=== PATIENT | female | born 1990 | race Caucasian/White ===

== ENCOUNTER 2018-01-15 11:49 | Emergency (ER) | payer MEDICAID, SELFPAY ==
[2018-01-15 11:50] VITALS: BP 144/81; PULSE 77; RESP 18; TEMP 36.9; O2SAT 97; BMI 48.5
[2018-01-15 12:14] LABS: Bacteria 0 SEEN /hpf (None Seen); Mucous, Urine 0 SEEN /hpf (<or=2+); Red Blood Cells-Urine 0 SEEN /hpf (0-5)
--- NOTE | 2018-01-15 12:17 | ED.VISSUMM ---
- ER Visit Summary Date of Service: 01/15/18 Chief Complaint: Abdominal pain History of Present Illness: The patient is a 27 F with no primary care physician. She reports that she has epigastric abdominal pain began yesterday at 8 PM shortly after eating a ham sandwich. Reports pain resolved. Came back at 5:00 this morning is much worse. She describes as a cramping, bloated feeling that is 8 out of 10 severity at worst and currently. Is worsened by standing up. Is relieved by laying down in the position. She has had nausea without vomiting. No diarrhea. Last bowel was yesterday. She has had no melena or hematochezia. No dysuria or frequency. Her last menstrual period was approximate 1 month ago. No vaginal bleeding or discharge. Patient reports that she was seen at [facility] approximately 3 weeks ago with a similar episode. States that she was admitted with pancreatitis and was told that she had gallstones. States that she did not have follow-up with the surgeon at this point. Patient denies any specific fatty food intolerance. States that there was mustard on her ham sandwich last night and she thinks this may be the culprit. She avoids spicy foods. Physical Examination: Vitals: Stable. Afebrile. General: Well-nourished and well-developed. Head: Normocephalic atraumatic. Neck: Supple, no lymphadenopathy. No JVD. Nontender. Cardiovascular: Regular rate and rhythm. No murmurs. Respiratory: No respiratory distress. Clear to auscultation bilaterally. Abdominal: Soft, moderate epigastric and right upper quadrant tenderness to palpation, nondistended, normal bowel sounds. No guarding, rebound, or peritoneal signs. Back: Nontender. Extremities: Nontender, no edema. Skin: Normal color, no rash. Neurologic: Alert and oriented ?3. Cranial nerves II through XII are intact. Normal strength and sensation. Psych: Normal affect. Test Results: Lipase is 31,594. Direct bili 0.34. ALT is 90. AST is 132. LFTs are otherwise normal. Chem-7 is normal. CBC shows segmented neutrophils 71 lymphocytes of 19. UA has 10-25 white blood cells with no epithelial cells. test is negative. Right upper quadrant ultrasound shows a normal distended gallbladder with a wall of 2.2 mm. No pericholecystic fluid. No Doll sign. She does have multiple gallstones. Common duct is 6.6 mm. Emergency Department Course and Treatment: Patient is on Subutex. She had an IV placed and was given Zofran and Toradol IV. She was given a GI cocktail p.o. she is resting comfortably. She is given dose of Cipro IV to cover her urine. Treatment Plan: Patient was discussed with Dr. Wolf who is concerned with the size of a common dilated bile duct that she may need an ERCP and asked that she be transferred to a tertiary center. She was discussed with [facility], her hospital of choice. She will be transferred there for further evaluation and treatment. Disposition: Transferred in stable condition. Impression: 1. Gallstone pancreatitis. This note was generated with [employer] dictation software. It may contain incorrect words, spelling, and punctuation that were not noted in review of the chart prior to signing ED Disposition - Plan for ED Patient: Chief Complaint: Abd Pain Referrals: NOT,DEFINED [NON-STAFF] -
[2018-01-15 12:23] LABS: Color, Urine Yellow (Yellow); Glucose, Dipstick Normal (Normal); Ketone-Dipstick Negative (Negative); Leukocyte Esterase-Dipstick 100 /ul (Negative); Nitrite-Dipstick Negative (Negative); Occult Blood-Urine Negative /ul (Negative); Protein-Dipstick Negative (Negative); Urine Bilirubin Dipstick Negative (Negative); Urine Clarity Sl. Cloudy (Clear); Urine Urobilinogen Normal (Normal)
[2018-01-15] MEDS: Ketorolac 30 MG/ML Syringe IV (12:29)
[2018-01-15] MEDS: 0.9% Normal Saline 1,000 ML 1000 ML IV (12:29)
[2018-01-15] MEDS: Ondansetron 4 MG/2 ML Vial IV (12:30)
[2018-01-15 12:42] LABS: Squamous Epithelial Cells - UA 0-5 SEEN /hpf (5-10); White Blood Cells 10-25 SEEN /hpf (0-5)
[2018-01-15 12:55] LABS: Absolute Lymphocyte Count 1.15 X10^3/ul (0.83-4.51); Absolute Neutrophil Count 4.4 X10^3/uL (2.0-7.7); Basophil# 0.01 X10^3/uL; Basophil% 0.2 % (0-1); Eosinophil# 0.18 X10^3/uL; Eosinophils% 2.9 % (0-5); Hematocrit 42.1 % (37-47); Hemoglobin 13.9 g/dl (12.0-15.0); Lymphocyte # 1.15 X10^3/ul (4.0); Lymphocyte % 18.6 % (19-41); Mean Corpuscular Hgb 29.8 pg (27.0-32.0); Mean Corpuscular Volume 90.3 fL (81-99); Mean Platelet Vol. 10.1 fl (6.2-12.0); Monocyte# 0.45 X10^3/uL; Monocyte% 7.3 % (0-10); Neutrophil # 4.38 X10^3/uL (2.7-7.7); Neutrophil % 70.8 % (47-70); POSITIVE COUNT NO; POSITIVE DIFFERENTIAL NO; POSITIVE MORPHOLOGY NO; Platelet Count 198 K/mm3 (150-450); RBC Distribution Width SD 42.1 fl (35.1-43.9); Red Blood Count 4.66 M/mm3 (4.2-5.4); White Blood Count 6.2 K/mm3 (4.4-11.0)
[2018-01-15 13:15] LABS: Pregnancy, Serum, hCG Quali. NEGATIVE Negative (0-9 Nonpreg)
[2018-01-15 13:30] LABS: AST(SGOT) 132 U/L (15-37); Alanine Aminotransfer ALT/SGPT 90 U/L (13-56); Albumin, Serum 3.2 g/dL (3.2-5.0); Alkaline Phosphatase 92 U/L (45-117); Anion Gap 7 (5-15); BUN 11 mg/dL (7-18); BUN/Creat Ratio 12.1 RATIO (10-20); Bilirubin, Direct 0.34 mg/dL (0.00-0.30); Calcium,Total 8.6 mg/dL (8.5-10.1); Chloride 107 mmol/L (98-107); Creatinine, Serum 0.91 mg/dL (0.55-1.02); EST Glomerular Filtration Rate 77 mL/min (>60); Est Glom Filt Rate - Afr Amer 94 mL/min (>60); Estimated Creatinine Clearance 75.46 ml/min; Globulin 3.7 g/dL (2.2-4.2); Glucose 89 mg/dL (74-106); Lipase 31594 U/L (73-393); Protein, Total 6.9 g/dL (6.4-8.2); Sodium Level 144 mmol/L (136-145)
--- NOTE | 2018-01-15 13:45 | US_ITS ---
STUDY: ABDOMINAL ULTRASOUND - RIGHT UPPER QUADRANT REASON FOR VISIT: Female, 27 years old. Abnormal liver enzymes. TECHNIQUE: Ultrasound evaluation of the right upper quadrant was performed with real-time and static mi-scale imaging. TECHNICAL QUALITY: Adequate. COMPARISON: None. FINDINGS: Liver: The liver measures 17 cm. There is increased echogenicity consistent with fatty infiltration. The bile ducts are within normal limits. There is hepatic color flow. The direction of portal flow is hepatopetal. There is a 9 mm x 7 mm x 8 mm slightly echogenic nodule in the right lobe of the liver. This most likely represents a small hemangioma. Gallbladder: Normal distended gallbladder. The gallbladder wall measures 2.2 mm. There is a negative sonographic Doll's sign. There is no pericholecystic fluid. There are multiple echogenic structures within the gallbladder, consistent with multiple gallstones. Common Bile Duct (C.B.D.): The common bile duct is slightly dilated and measures 6.6 mm. Pancreas: Normal size of the head, body of the pancreas. The tail portion is obscured due to overlying bowel gas. There is normal echogenicity of the pancreas. There is no demonstrated pancreatic mass or cyst. Right Kidney: Normal size of the right kidney. The right kidney measures 12 cm x 5.4 cm x 4.5 cm. Normal renal cortex. The right cortex measures 1.0 cm. There is no demonstrated renal mass or cyst. There is no right hydronephrosis. US/Gallbladder IMPRESSION: Multiple gallstones. Mild dilatation of the common bile duct. Findings suggestive of a small hemangioma in the right lobe of the liver. Electronically Signed: Denzel August MD at 15:22 EDT Tel [phone], Service support ,
[2018-01-15 14:23] VITALS: BMI 48.5
[2018-01-15 14:32] VITALS: BP 105/56; PULSE 60; RESP 14; O2SAT 96
[2018-01-15] MEDS: buPROPion 100 MG Tablet PO (16:48)
[2018-01-15] MEDS: Ciprofloxacin 400 MG/200 ML BAG 200 MG IV (16:48)
[2018-01-15] MEDS: Sertraline 100 MG Tablet PO (16:48)
[2018-01-15 17:39] VITALS: PULSE 62; RESP 16
== END 2018-01-15 17:35 | disposition short-term general hospital (02) ==
PROVIDERS: Emergency Provider Emergency Medicine
DX: K85.10 Biliary acute pancreatitis without necrosis or infection (principal); F17.200 Nicotine dependence, unspecified, uncomplicated
CPT/HCPCS: 76705; 80048; 80076; 81001; 83690; 84703; 85025; 96361; 96365; 96374; 96375; 99284; J7030; J7050; J0744; J2405

== ENCOUNTER 2018-02-21 04:13 | Emergency (ER) | payer MEDICAID, SELFPAY ==
[2018-02-21 04:14] VITALS: BP 134/89; PULSE 76; RESP 20; TEMP 36.6; O2SAT 100; BMI 47.3
--- NOTE | 2018-02-21 04:20 | ED.DCSUM_ITS ---
- ER Visit Summary Date of Service: 02/21/18 Chief Complaint: Vaginal and vulvar pain History of Present Illness: The patient is a 27 F who presents for 2 days of vaginal pain. Patient noted vaginal irritation that is now progressed to vulvar irritation. She thought it might be yeast infection and has been using 2 days of the vaginal cream insertion without improvement. She noted white creamy discharge after starting to use these infection medications. She denies any vaginal bleeding. Today when wiping she noted blood on her tissue paper. She denies any dysuria, suprapubic discomfort, abdominal pain, nausea vomiting, fever, frequency, urgency. She is sexually active with a new partner for 1 month and they have been having unprotected sex. Patient is also concerned for . Physical Examination: Vital signs: afebrile, hemodynamically stable, no hypoxia on room air General: well nourished, well developed, in no distress Skin: warm, dry, no rash, no pallor HEENT: normocephalic and atraumatic; PERRL, EOMI, moist mucous membranes Cardiovascular: regular rate and rhythm Respiratory: No increased work of breathing Abdominal: Abdomen is soft, nontender with normoactive bowel sounds, no guarding or rebound, no masses : normal external genitalia without lesions, small fissure noted superior to the urethra along the skin crease with associated tenderness, homogenous white vaginal discharge, cervical erythema, no vaginal lesions, no cervical motion tenderness, no adnexal masses or tenderness MSK: Moves all extremities, no deformities, normal strength Neuro: Awake and alert, oriented ?4. No facial droop, sensation and motor function intact and symmetric Test Results: Abnormal Lab Results 02/21/18 02/21/18 04:22 04:22 Urine Color Yellow Urine Clarity Sl. Cloudy Urine pH 5.0 Ur Specific [place] 1.025 Urine Protein 15 H Urine Glucose (UA) Normal Urine Ketones 5 H Urine Occult Blood 10 H Urine Nitrite Negative Urine Bilirubin 1 H Urine Urobilinogen 1 H Ur Leukocyte Esterase 500 H Urine RBC 0 SEEN Urine WBC 10-25 SEEN Ur Squamous Epith Cells 0 SEEN Urine Bacteria RARE Hyaline Casts 0-5 SEEN Urine Mucus 2+ Urine Trichomonas 0-5 SEEN Urine Test Negative Emergency Department Course and Treatment: Urinalysis was performed, as well as test, GC and chlamydia, and wet prep to evaluate for trichomonas or yeast infection. Patient's urinalysis and wet prep were positive for trichomonas. Patient was started on Flagyl. Patient opted for 1 week of twice daily dosing rather than 1x2 g dose. Patient was going to be treated empirically for GC and chlamydia, however she is allergic to penicillins and Cefaclor, thus we discussed waiting for the results of the pending GC and Chlamydia testing to determine if treatment is necessary. Patient's phone number was updated in the system. Patient was discharged home with a prescription for 1 week of Flagyl 500 mg twice daily, with the first dose given in the emergency department. Treatment Plan: [] Disposition: [] Impression: Trichomonas vaginitis This note was generated with [employer] dictation software. It may contain incorrect words, spelling, and punctuation that were not noted in review of the chart prior to signing ED Disposition - Plan for ED Patient: Disposition: Home or Assisted Living Chief Complaint: General Illness Instructions: ED Vaginitis Trichomonas Prescriptions: Metronidazole [Flagyl] 500 mg PO BID #14 tab Referrals: Care Physician,No Primary [Primary Care Provider] - Additional Instructions: Take the entire week of antibiotics, even if you feel better before they are done. Do not drink alcohol while taking this antibiotic. Do not have sexual intercourse until you have been treated with the antibiotics, and do not have intercourse with any current partners until they have also been treated. If you have any worsening of your condition or any new concerning symptoms, please return immediately to the emergency department for another evaluation.
[2018-02-21 04:38] LABS: Red Blood Cells-Urine 0 SEEN /hpf (0-5); Squamous Epithelial Cells - UA 0 SEEN /hpf (5-10)
[2018-02-21 04:41] LABS: Color, Urine Yellow (Yellow); Glucose, Dipstick Normal (Normal); Internal QC Validated? YES +Cl - CLEAR BKGD; Ketone-Dipstick 5 mg/dl (Negative); Leukocyte Esterase-Dipstick 500 /ul (Negative); Nitrite-Dipstick Negative (Negative); Occult Blood-Urine 10 /ul (Negative); Pregnancy, Urine Negative Negative; Protein-Dipstick 15 mg/dl (Negative); Specific Gravity, Urine 1.025 (1.002-1.030); Urine Clarity Sl. Cloudy (Clear); Urine Urobilinogen 1 mg/dl (Normal)
[2018-02-21 04:57] LABS: Urine Bilirubin Dipstick 1 mg/dL (Negative)
[2018-02-21 04:58] LABS: Bacteria RARE /hpf (None Seen); Mucous, Urine 2+ /hpf (<or=2+)
[2018-02-21 04:59] LABS: Hyaline Cast 0-5 SEEN /lpf (0-5); Trichomonas 0-5 SEEN /hpf (None Seen)
[2018-02-21 05:00] LABS: White Blood Cells 10-25 SEEN /hpf (0-5)
--- NOTE | 2018-02-21 05:28 | ED.DEP ---
ED Disposition - Plan for ED Patient: Disposition: Home or Assisted Living Chief Complaint: General Illness Instructions: ED Vaginitis Trichomonas Prescriptions: Metronidazole [Flagyl] 500 mg PO BID #14 tab Referrals: Care Physician,No Primary [Primary Care Provider] - Additional Instructions: Take the entire week of antibiotics, even if you feel better before they are done. Do not drink alcohol while taking this antibiotic. Do not have sexual intercourse until you have been treated with the antibiotics, and do not have intercourse with any current partners until they have also been treated. If you have any worsening of your condition or any new concerning symptoms, please return immediately to the emergency department for another evaluation.
[2018-02-21] MEDS: metroNIDAZOLE 500 MG Tablet PO (05:40)
[2018-02-21 05:44] VITALS: RESP 14
[2018-02-21 06:32] LABS: Chlamydia Trachomatis by PCR Negative (Negative); Neisserai gonorrhoeae by PCR Negative (Negative); Probe Check PASS; Sample Adequacy Control PASS; Specimen Processing Control PASS
== END 2018-02-21 05:44 | disposition home or self-care (01) ==
PROVIDERS: Emergency Provider Emergency Medicine
DX: A59.01 Trichomonal vulvovaginitis (principal); E66.9 Obesity, unspecified; Z87.19 Personal history of other diseases of the digestive system; Z79.899 Other long term (current) drug therapy
CPT/HCPCS: 81001; 81025; 87086; 87088; 87210; 87491; 87591; 99283

== ENCOUNTER 2018-08-05 06:43 | Emergency (ER) | payer MEDICAID, SELFPAY ==
[2018-08-05 06:45] VITALS: BP 134/93; PULSE 71; RESP 16; TEMP 36.6; O2SAT 98; BMI 38.9
--- NOTE | 2018-08-05 07:38 | ED.DEP ---
ED Disposition - Plan for ED Patient: Instructions: ED Cavity Dental, ED Tooth Pain Prescriptions: Naproxen [Naprosyn] 500 mg PO BID PRN #20 tab Clindamycin HCl [Cleocin] 300 mg PO Q6H #40 cap Referrals: Care Physician,No Primary [Primary Care Provider] - Additional Instructions: see a dentist
[2018-08-05] MEDS: Clindamycin HCl 150 MG Capsule 300 MG PO (07:49)
--- NOTE | 2018-08-05 07:55 | ED.VISSUMM ---
- ER Visit Summary Date of Service: 08/05/18 Chief Complaint: [Dental pain] History of Present Illness: The patient is a 28 F [presents the emergency department complaint of dental pain that started 2-3 days ago. Patient states that she had a broken right upper wisdom tooth that she was supposed to have extracted years ago but then got and it was not bothering her so she kind of neglected it. Patient's had increasing pain over the last 2-3 days. She denies any fevers. She denies any recent trauma to her teeth. Patient states that she is a recovering drug addict and does not want any narcotics. Patient has some insurance issues and has been unable to get a hold of a dentist as of yet.] Physical Examination: [HEENT-PERRLA, EOMI. Cranial nerves II through XII grossly intact. TMs clear. Mucous membranes moist. No adenopathy. Dentition-patient has a broken and carried right upper third molar that is tender to palpation. No abscess noted. No significant pharyngeal erythema noted. There is no facial cellulitis. Cardiovascular-regular rate and rhythm without murmur or ectopy Lungs-clear to auscultation, chest wall stable without crepitus or subcu emphysema Abdomen-normoactive bowel sounds, soft, nontender, no rebound or rigidity, no peritoneal signs. Extremities-intact ?4, normal range of motion, normal pulses, atraumatic] Test Results: None indicated [] Emergency Department Course and Treatment: [Patient was given clindamycin ] Treatment Plan: [Given a prescription for Naprosyn and clindamycin] Disposition: [Discharged home in stable condition. Patient advised to follow-up with a dentist within next 3-5 days.] Impression: [Dental caries Dental pain] This note was generated with [employer] dictation software. It may contain incorrect words, spelling, and punctuation that were not noted in review of the chart prior to signing ED Disposition - Plan for ED Patient: Disposition: Home or Assisted Living Instructions: ED Tooth Pain, ED Cavity Dental Prescriptions: Naproxen [Naprosyn] 500 mg PO BID PRN #20 tab Clindamycin HCl [Cleocin] 300 mg PO Q6H #40 cap Referrals: Care Physician,No Primary [Primary Care Provider] - Additional Instructions: see a dentist
== END 2018-08-05 07:51 | disposition home or self-care (01) ==
LOC: ED 07:46
PROVIDERS: Emergency Provider Emergency Medicine
DX: K02.9 Dental caries, unspecified (principal); K08.89 Other specified disorders of teeth and supporting structures; S02.5XXA Fracture of tooth (traumatic), initial encounter for closed fracture; X58.XXXA Exposure to other specified factors, initial encounter; Y93.9 Activity, unspecified; Y92.9 Unspecified place or not applicable; Z87.898 Personal history of other specified conditions; Z72.0 Tobacco use
CPT/HCPCS: 99282

== ENCOUNTER 2018-08-15 16:50 | Emergency (ER) | payer MEDICAID, SELFPAY ==
[2018-08-15 16:51] VITALS: BP 124/76; PULSE 85; RESP 16; TEMP 36.6; O2SAT 100; BMI 38.9
--- NOTE | 2018-08-15 17:06 | ED.VISSUMM ---
- ER Visit Summary Date of Service: 08/15/18 Chief Complaint: Nausea, fatigue, headache History of Present Illness: The patient is a 28 F who feels extra fatigued for the past week or so. She states she has had intermittent nausea and vomited once yesterday. She felt better this morning but then after lunch felt very ill again. She denies diarrhea. She is a chronic smoker's cough that is unchanged from baseline. Physical Examination: Vital signs are unremarkable. She is afebrile. Pulse ox is 100% on room air. Patient sitting upright in bed no acute distress. Head neck examination unremarkable. Heart is regular rate and rhythm. Lungs sounds clear. Abdomen is soft and nontender. Neuro exam reveals no focal deficits with good strength and sensation on testing. Test Results: CBC significant only for hemoglobin concentrated at 15.1. Chemistry studies normal. Urinalysis normal. test negative. Two-view chest x-ray is unremarkable. Emergency Department Course and Treatment: Patient is given IV fluids, Toradol, and Zofran. On repeat evaluation she does feel improved. I believe she likely has viral syndrome. We talked about the possibility of influenza, but the patient has been ill for greater than 2 days and is not a candidate for Tamiflu at this time. She will be given some Zofran for home if needed. Treatment Plan: [] Disposition: Discharge Impression: Viral syndrome This note was generated with [employer] dictation software. It may contain incorrect words, spelling, and punctuation that were not noted in review of the chart prior to signing ED Disposition - Plan for ED Patient: Referrals: Care Physician,No Primary [Primary Care Provider] -
[2018-08-15 17:23] LABS: Absolute Neutrophil Count 4.1 X10^3/uL (2.0-7.7); Basophil# 0.08 X10^3/uL; Eosinophil# 0.47 X10^3/uL; Eosinophils% 5.7 % (0-5); Hematocrit 42.7 % (37-47); Hemoglobin 15.1 g/dl (12.0-15.0); Lymphocyte % 37.5 % (19-41); Mean Corp Hgb Conc 35.4 g/gl (32-36); Mean Corpuscular Hgb 32.1 pg (27.0-32.0); Mean Corpuscular Volume 90.7 fL (81-99); Mean Platelet Vol. 9.6 fl (6.2-12.0); Monocyte# 0.54 X10^3/uL; Monocyte% 6.5 % (0-10); Neutrophil # 4.06 X10^3/uL (2.7-7.7); Neutrophil % 49.1 % (47-70); Platelet Count 254 K/mm3 (150-450); RBC Distribution Width CV 12.8 % (11.6-14.6); RBC Distribution Width SD 42.1 fl (35.1-43.9); Red Blood Count 4.71 M/mm3 (4.2-5.4); White Blood Count 8.3 K/mm3 (4.4-11.0)
[2018-08-15 17:24] LABS: POSITIVE COUNT NO; POSITIVE DIFFERENTIAL NO; POSITIVE MORPHOLOGY NO
[2018-08-15] MEDS: 0.9% Normal Saline 1,000 ML 1000 ML IV (17:30)
[2018-08-15] MEDS: Ondansetron 4 MG/2 ML Vial IV (17:30)
[2018-08-15] MEDS: Ketorolac 30 MG/ML Syringe IV (17:30)
--- NOTE | 2018-08-15 17:41 | RAD_ITS ---
STUDY: X-RAY CHEST REASON FOR EXAM: Female, 28 years old. Cough TECHNIQUE: PA and lateral views of the chest. COMPARISON: None. FINDINGS: The lungs are clear and expanded. There is no demonstrated pleural abnormality. Normal size heart. Normal mediastinum and sarai. Normal visualized pulmonary arteries. Normal visualized aortic arch and descending thoracic aorta. Normal visualized thoracic spine. Normal visualized ribs, clavicles, and shoulders. There is no demonstrated abnormality of the visualized soft tissue structures of the upper abdomen. RAD/Chest PA and Lateral IMPRESSION: Normal x-ray examination of the chest. Electronically Signed: Britton Mirza MD at 18:07 EST , Service support ,
[2018-08-15 17:47] LABS: Anion Gap 7 (5-15); BUN 13 mg/dL (7-18); BUN/Creat Ratio 12.9 RATIO (10-20); Calcium,Total 8.3 mg/dL (8.5-10.1); Chloride 104 mmol/L (98-107); Creatinine, Serum 1.01 mg/dL (0.55-1.02); EST Glomerular Filtration Rate 68 mL/min (>60); Est Glom Filt Rate - Afr Amer 83 mL/min (>60); Estimated Creatinine Clearance 67.37 ml/min; Glucose 96 mg/dL (74-106); Potassium 3.7 mmol/L (3.5-5.1); Sodium Level 137 mmol/L (136-145)
[2018-08-15 17:48] LABS: Bacteria 0 SEEN /hpf (None Seen); Mucous, Urine 0 SEEN /hpf (<or=2+)
[2018-08-15 17:49] LABS: Color, Urine Yellow (Yellow); Glucose, Dipstick Normal (Normal); Ketone-Dipstick Negative (Negative); Leukocyte Esterase-Dipstick Negative /ul (Negative); Nitrite-Dipstick Negative (Negative); Occult Blood-Urine Negative /ul (Negative); Protein-Dipstick Negative (Negative); Urine Bilirubin Dipstick Negative (Negative); Urine Clarity Clear (Clear); Urine Urobilinogen Normal (Normal)
[2018-08-15 18:19] LABS: Pregnancy, Serum, hCG Quali. NEGATIVE Negative (0-9 Nonpreg)
[2018-08-15 18:22] LABS: Squamous Epithelial Cells - UA 0-5 SEEN /hpf (5-10)
[2018-08-15 18:24] LABS: Red Blood Cells-Urine 0-5 SEEN /hpf (0-5)
[2018-08-15 18:28] LABS: White Blood Cells 0-5 SEEN /hpf (0-5)
--- NOTE | 2018-08-15 18:41 | ED.DEP ---
ED Disposition - Plan for ED Patient: Disposition: Home or Assisted Living Instructions: ED Viral Syndrome Prescriptions: Ondansetron [Zofran Odt] 4 mg PO Q8H PRN PRN #10 tablet PRN Reason: Nausea Referrals: Carl Estevez MD [STAFF PHYSICIAN] - As Needed
[2018-08-15 18:56] VITALS: RESP 16
== END 2018-08-15 18:57 | disposition home or self-care (01) ==
PROVIDERS: Emergency Provider Emergency Medicine
DX: B34.9 Viral infection, unspecified (principal); R11.2 Nausea with vomiting, unspecified; J41.0 Simple chronic bronchitis; M79.10 Myalgia, unspecified site; R53.83 Other fatigue; Z87.898 Personal history of other specified conditions; F17.200 Nicotine dependence, unspecified, uncomplicated
CPT/HCPCS: 71046; 80048; 81001; 84703; 85025; 96361; 96374; 96375; 99283; J7030; J2405

== ENCOUNTER 2019-02-22 23:20 | Outpatient (CLI) | payer MEDICAID, SELFPAY ==
[2019-02-22 23:55] VITALS: BMI 42.9
--- NOTE | 2019-02-23 07:56 | OB.TRI.NOTE ---
History of Present Illness Date of Service: 02/22/19 Was patient seen by the physician?: No Reason For Visit: cramping Date of Service: 02/22/19 Final MORALES: 06/26/19 Gestational age: 22 Weeks and 3 Days Allergies amoxicillin [Amoxicillin] Allergy (Verified 02/23/19 00:00) Hives cefaclor [From Ceclor] Allergy (Verified 02/23/19 00:00) Hives Penicillins Allergy (Verified 02/23/19 00:00) Hives morphine Adverse Reaction (Verified 02/23/19 00:00) Hives narcotics Adverse Reaction (Uncoded 02/23/19 00:00) Other in recovery for addiction NST - FHR Rate Baby A Baseline: 130s NST Reactive:: Appropriate for gestational age Uterine Activity:: no contactions Impression/Plan 28-year-old 2 para 1 at 22+ weeks gestation with cramping-not in labor Patient had lactose which she has avoided in her diet due to GI concerns. This is likely the cause of her abdominal cramping. No signs of labor. DC home.
== END 2019-02-23 00:10 | disposition home or self-care (01) ==
LOC: WPOUT 23:40 → WP 23:41
PROVIDERS: Referring Provider Obstetrics & Gynecology; Visit Provider Obstetrics & Gynecology
DX: O26.892 Other specified pregnancy related conditions, second trimester (principal); R25.2 Cramp and spasm; Z3A.22 22 weeks gestation of pregnancy
CPT/HCPCS: 59025; 59050; 99218; G0378

== ENCOUNTER 2019-06-07 22:21 | Outpatient (CLI) | payer MEDICAID, SELFPAY ==
[2019-06-07 23:06] VITALS: BMI 44.1
--- NOTE | 2019-06-09 12:36 | OB.TRI.NOTE ---
History of Present Illness Date of Service: 06/07/19 Was patient seen by the physician?: No Reason For Visit: R/O LABOR Date of Service: 06/07/19 Gestational age: 37.2 Allergies amoxicillin [Amoxicillin] Allergy (Verified 06/07/19 23:07) Hives cefaclor [From Ceclor] Allergy (Verified 06/07/19 23:07) Hives Penicillins Allergy (Verified 06/07/19 23:07) Hives morphine Adverse Reaction (Verified 06/07/19 23:07) Hives narcotics Adverse Reaction (Uncoded 06/07/19 23:07) Other in recovery for addiction NST - FHR Rate Baby A Baseline: 125 Variability:: Moderate Accelerations:: 15 x 15 Decelerations:: None NST Reactive:: Yes FHR Category:: Category I Uterine Activity:: irregular contractions Impression/Plan 28yo @ 37.2 wks, false labor 1) dc home
== END 2019-06-07 23:15 | disposition home or self-care (01) ==
LOC: WPOUT 22:40 → WP 22:40
PROVIDERS: Referring Provider Obstetrics & Gynecology; Visit Provider Obstetrics & Gynecology
DX: O47.1 False labor at or after 37 completed weeks of gestation (principal); Z3A.37 37 weeks gestation of pregnancy
CPT/HCPCS: 59025; 59050; 99218; G0378

== ENCOUNTER 2019-06-20 07:30 | Inpatient (IN) | payer MEDICAID, SELFPAY ==
[2019-06-20] MEDS: Lactated Ringers 1,000 ML 50 ML IV (08:00)
[2019-06-20] MEDS: Oxytocin 30 units/NS 500 ml 30 UNITS/500 ML IV.SOLN IV (08:20)
[2019-06-20 08:25] LABS: Absolute Lymphocyte Count 2.83 X10^3/uL (0.83-4.51); Absolute Neutrophil Count 5.4 X10^3/uL (2.0-7.7); Basophil# 0.04 X10^3/uL; Basophil% 0.4 % (0-1); Eosinophil# 0.42 X10^3/uL; Eosinophils% 4.5 % (0-5); Hematocrit 33.8 % (37-47); Hemoglobin 11.7 g/dL (12.0-15.0); Lymphocyte # 2.83 X10^3/ul (4.0); Mean Corp Hgb Conc 34.6 g/dL (32-36); Mean Corpuscular Hgb 30.6 pg (27.0-32.0); Mean Corpuscular Volume 88.5 fL (81-99); Mean Platelet Vol. 10.7 fl (6.2-12.0); Monocyte# 0.71 X10^3/uL; Monocyte% 7.5 % (0-10); NRBC Flagged by Analyzer 0 % (0-5); Neutrophil % 57.3 % (47-70); Platelet Count 175 K/mm3 (150-450); RBC Distribution Width CV 12.2 % (11.6-14.6); RBC Distribution Width SD 38.9 fl (35.1-43.9); Red Blood Count 3.82 M/mm3 (4.2-5.4); White Blood Count 9.4 K/mm3 (4.4-11.0)
[2019-06-20] MEDS: Vancomycin IV 1,000 MG/200 ML BAG 200 MG IV ×2 (08:26→19:38)
[2019-06-20 08:46] VITALS: BMI 45.1
[2019-06-20 08:54] LABS: Amphetamine Urine VISTA NEGATIVE (<1000 ng/mL); Barbiturate Urine VISTA NEGATIVE (< 200 ng/mL); Benzodiazepine Urine VISTA NEGATIVE (< 200 ng/mL); Cocaine Urine VISTA NEGATIVE (< 300 ng/mL); Ecstacy Urine VISTA NEGATIVE (< 500 ng/mL); Methadone Urine VISTA NEGATIVE (< 300 ng/mL); PCP Urine VISTA NEGATIVE (< 25 ng/mL); THC Urine VISTA NEGATIVE (< 50 ng/mL); Vista UDS pH Range 5
[2019-06-20] MEDS: 0.9% Normal Saline Single 100 ML IV.SOLN. IY (09:32)
--- NOTE | 2019-06-20 10:11 | HP.PCM_ITS ---
- Problem List (1) 39 weeks gestation of Status: Acute (2) Multiparous Status: Acute (3) complicated by Suboxone maintenance, antepartum Status: Acute (4) Tobacco abuse Status: Acute (5) Obesity affecting Status: Acute (6) History of depression Status: Acute (7) Hx of macrosomia, infant of prior , currently Status: Acute (8) Positive GBS test Status: Acute History Date of Admission: 06/20/19 Final MORALES: 06/26/19 Gestational age: 39 Weeks and 1 Days History of this : This is a 28 year-old, G 2, P 1, at 39 weeks gestational age who presents for an elective IOL. +Irregular ctx's. No vb, lof. Good FM. Medical History: Medical History (Last Updated 06/20/19 @ 10:15 by Alexandra Pennington DO) History of drug abuse F19.11 History of depression Z87.59, Z86.59 Surgical History: Surgical History (Last Updated 06/20/19 @ 10:15 by Alexandra Pennington DO) History of laparoscopic cholecystectomy Z90.49 History of tonsillectomy and adenoidectomy Z98.890 Allergies amoxicillin [Amoxicillin] Allergy (Verified 06/07/19 23:07) Hives cefaclor [From Ceclor] Allergy (Verified 06/07/19 23:07) Hives Penicillins Allergy (Verified 06/07/19 23:07) Hives morphine Adverse Reaction (Verified 06/07/19 23:07) Hives narcotics Adverse Reaction (Uncoded 06/07/19 23:07) Other in recovery for addiction Home Medications: Home Medications Ondansetron [Zofran Odt] 4 mg PO Q8H PRN PRN #10 tablet 08/15/18 Buprenorphine HCl 8 mg SL BID 06/20/19 Pnv No.103/Folic/Om3s/Fish Oil [ Gummies] 2 ea PO DAILY 06/20/19 Smoking Status: Heavy Smoker (>10/day) Substance Use Type: Prescribed Number of Fetus(es): 1 NST - FHR Rate Baby A NST Reactive:: Yes FHR Category:: Category I Uterine Activity:: Occasional ctx's History Past Pregnancies: Past Pregnancies Delivery Date Name GA/ Weeks Outcome Route Wt Sex Labor Length Anesthesia Delivery Location Provider FOB Labs: GBS pos Hgb 11.4 1 hr GTT 86 Sequential screen neg O positive Antibody screen neg Syphilis NR RI Hep B neg HIV NR GC/CT neg UDS neg Expected Infant Delivery Method: Spontaneous Vaginal Review of Systems Gynecological: Reports: - - +Ctx's. No vb, lof. Good FM Physical Exam General: Alert, No apparent distress HEENT: Atraumatic Abdomen: Soft, Non Tender, Gravid Extremities:: No edema Neurological: Neuro grossly intact CASH RECONCILIATION SPECIALIST: Normal external genitalia Estimated gestational size: Appropriate for gestational size Presentation: Cephalic Cervix Dilation (cm): 1.5 Station: -2 Effacement (%): 60 Assessment/Plan All Active Problems (Last Updated 06/20/19 @ 10:15 by Alexandra Pennington DO) 39 weeks gestation of (Acute) Multiparous (Acute) complicated by Suboxone maintenance, antepartum (Acute) Tobacco abuse (Acute) Obesity affecting (Acute) History of depression (Acute) Hx of macrosomia, of prior , currently (Acute) Positive GBS test (Acute) This is a 28 year-old, G 2, P 1001, at 39 weeks gestational age who presents for scheduled elective IOL. - Admit for routine intrapartum care - Pit and farrar induction - Vanc for GBS positive - Epidural for pain control - Pelvis adequate and anticipate vaginal delivery - UDS on admission for h/o drug use on Subutex. Per patient, she was instructed that the Subutex would be ordered as an inpatient and then she will have her own [facility]
--- NOTE | 2019-06-20 16:10 | PCM.PN.BLA ---
Progress Note Cvx 5/60/-2, head well applied. AROM performed in usual fashion for clear fluid. IUPC and FSE placed. Pt tolerated well. Category 1 tracing.
[2019-06-20] MEDS: Lactated Ringers 500 ML 999 ML IV ×2 (16:42→23:21)
[2019-06-20] MEDS: Ondansetron 4 MG/2 ML Vial IV (17:55)
[2019-06-20] MEDS: Lactated Ringers 1,000 ML 200 ML IV (19:38)
[2019-06-20 20:11] LABS: BUP Internal Control LINE = VALID (VALID); Buprenorphine Drug Screen Positive (<10 ng/mL)
[2019-06-21] MEDS: Oxytocin 30 units/NS 500 ml 30 UNITS/500 ML IV.SOLN 334 UNITS IV (00:21)
--- NOTE | 2019-06-21 00:33 | PCM.OPRPT ---
Problem List (1) 39 weeks gestation of Status: Acute (2) Multiparous Status: Acute (3) complicated by Suboxone maintenance, antepartum Status: Acute (4) Tobacco abuse Status: Acute (5) Obesity affecting Status: Acute (6) History of depression Status: Acute (7) Hx of macrosomia, infant of prior , currently Status: Acute (8) Positive GBS test Status: Acute Report of Operation Date of Procedure: 06/21/19 Pre-Operative Diagnosis: 39 week gestation, mulitparous patient, history of drug use, obesity in , elective induction Post-Operative Diagnosis: As above Surgery/Procedure Performed:: Type of Anesthesia:: Epidural Special Medications: None Specimen's removed: Placenta Drains: Hurley Estimated Blood Loss (mL): 300 Description of Procedure: Patient complete and pushing. Head was delivered without force or delay and a loose nuchal cord was noted and reduced. The anterior shoulder followed by the posterior shoulder and body were delivered without force or delay. Viable female was delivered atraumatically and placed on maternal abdomen. Cord was clamped and cut after a 60 sec delay by the father of the baby. Cord gases and cord blood were obtained. Placenta delivered spontaneously and was noted to be normal-appearing and intact. There was a three-vessel cord. Uterus was explored x1 with a small amount of membranes removed. No lacerations were noted. Fundus firm and bleeding hemostatic. Grafts/Implants Used: None - Complications None - Admit VTE Documentation VTE Present on Admission: No Vaginal Delivery Maternal Presentation: Elective Induction Method of Induction: Pitocin, Hurley Bulb Amniotic Membrane Rupture Type: Artificial Amniotic Fluid Description: Clear Surgery/ Procedure Performed: Spontaneous Vaginal Delivery Type of Anesthesia: Epidural Presentation: Vertex Placental Delivery Description: Spontaneous Cord Vessel Description: 3 Vessels Nuchal Cord Compression: Without compression Cord Entanglement: Around neck x 1, loose Infant A gender: Female (1 minute): 8 (5 minute): 9 Episiotomy Description: None Laceration: None Medications given after delivery: IV Pitocin
[2019-06-21] MEDS: Ondansetron 4 MG/2 ML Vial IV (02:19)
[2019-06-21 04:30] VITALS: BP 132/57; PULSE 78; RESP 16; TEMP 37.2
[2019-06-21] MEDS: BUPRENORPHINE HCL 8 MG TAB.SUBL SL ×2 (06:27→18:22)
[2019-06-21 08:00] VITALS: BP 122/76; PULSE 78; RESP 16; TEMP 36.4
[2019-06-21 09:59] LABS: Hepatitis C Antibody Non-Reactive (Nonreactive)
[2019-06-21 11:41] VITALS: BP 116/57; PULSE 78; RESP 16; TEMP 36.1
[2019-06-21 16:00] VITALS: BP 114/65; PULSE 76; RESP 20; TEMP 36.3
[2019-06-21 20:11] VITALS: BP 120/50; PULSE 67; RESP 14; TEMP 36.3
[2019-06-22 00:14] VITALS: BP 105/61; PULSE 70; RESP 16; TEMP 36.4
[2019-06-22] MEDS: Ibuprofen 600 MG Tablet PO ×3 (00:48→17:58)
[2019-06-22 04:33] VITALS: BP 99/57; PULSE 71; RESP 14; TEMP 36.6
[2019-06-22] MEDS: BUPRENORPHINE HCL 8 MG TAB.SUBL SL ×2 (06:17→17:54)
[2019-06-22 08:30] VITALS: BP 112/67; PULSE 60; RESP 16; TEMP 35.9
--- NOTE | 2019-06-22 11:15 | CASEMGMT ---
Social Work Assessment Labor and Delivery Unit Patient address: [address] [place] [id number] Family?s phone: [phone]; [phone] Date of Referral: 06.22.2019 Time of Referral: 829 Referred By: social work identification Date of Intervention: 06.22.2019 Time of Intervention: 1115 Reason for Referral: maternal history of substance use disorder and on Subutex; baby on TUAN monitoring per protocol. History obtained from: medical records and mother of baby (MOB) Kiesha James Household composition: MOB and reported father of baby (FOB) Rolan García are fulltime. MOB?s oldest child has been back in the home since 05.31.2019. FOB has 2 older children who are there -and every other weekend. MOB reports home situation is adequate. Patient's parent/guardian status: MOB and FOB are both ag 30 and have been together for a year. MOB denies any form of abuse in relationship with FOB. baby is the first child for MOB and FOB together. MOB's minor children: [place] baby, Marcie García, born on 06.21.2019. Maya Reardon, age 4 in current custody of [facility] Children services. Child living back with MOB since 05.31.2019 on an extended stay, with reported plan for reunification and transfer of custody back to [facility] on 07.29.2019. FOB?s older children are Isaac age 8 and Burke age 6. Medical History: MOB is G2, P1 to 2 after delivering Marcie. MOB with are starting early but there was a gap in care from 22 to 31 weeks gestation. Baby born term and weighed 7 pounds 5 ounces with Apgars 8 and 9. Educational Status: MOB has her GED. Reports to be able to read, write, and understand what is read. Financial Status: MOB works at [employer] and FOB works at [employer] on third shift. Supplies: MOB reports to have needed supplies including a pack-n-play for sleeping, car seat, clothing, diapers, wipes, breast pump. Childcare/Caregiver(s): MOB and FOB. MOB reports children services just got MOB signed up for day care assistance through [facility]. Transportation: No reported issues. Programs/Agencies Involved: MOB has Medicaid through [facility]. Plans to apply for WIC. Active with [facility] in [place] for aftercare programming and Subutex treatment, meeting weekly at this agency. MOB is active with Veronica Rivera at [facility] for counseling. Recently in the [facility] but reports IGNACIO quit this as IGNACIO had too many things going with other treatment and counseling appointments. Children Services/Legal Issues: Denies any legal issues. Reports history of children services after Maya was born due to substance exposed infant. MOB reports the case was short, just checking to make sure that IGNACIO had everything for the baby. MOB reports last year ?Failed one drug test? and this prompted children services to remove Maya from IGNACIO?s custody. Current family independence case manager is Donaldo Herrmann. Behavioral Health Issues: Mental Health History: IGNACIO has history of depression and anxiety, diagnosed as a teen. History of depression, and history of treatment with Zoloft but no current medication treatment for mood or mental health. MOB denies any history of suicidal thoughts, plans, or attempts. Denies any history of thoughts to harm others. Substance Use History: IGNACIO with history of using drugs off and on since the age of 19. IGNACIO reports was using opiates during with Maya 4 years ago, and got onto Subutex during that . MOB reports relapsing 2 times since Maya was born, with the first being a month after Maya?s as IGNACIO went off Subutex and then the next being in 2018 when IGNACIO was dealing with stress from her ex. IGNACIO states has been sober this time since 05.14.2018. IGNACIO reports past drugs of choice including narcotic pain pills, heroin, and cocaine. No history of IV use. Denies history of issues with alcohol or marijuana. No reports of meth history. Smoke tobacco daily. On Subutex during this , 8 mg twice a day as per Lana Zuñiga at [facility]. Family History: chart indicates IGNACIO?s father with history of alcohol use issues ( since 2009) and then IGNACIO?s brother is an intermittent user of substances. Drug Screens: maternal drug screen negative prenatally on 10.30.2018 and then at delivery 06.20.2019. 06.20.2019 screen Positive only for Subutex. Baby?s urine positive for Subutex only. Meconium is pending. TUAN scoring has been the highest at a three so far. Family/Social Stressors: IGNACIO is in recovery from illicit drug use. Unexpected but accepting of this and intends to keep and parent the baby. IGNACIO lost custody of her oldest daughter a year or so ago due to drug use and has been working to reunify with her daughter. The older daughter was just placed back into the home full-time on 05.31.2019, so a bit of a stress now adjusting to parenting not one but two small children in this period. MOB reports that FOB?s family did not fully understand MOB?s continued use of Subutex during the , so this was at times challenging. Support Systems: MOB reports FOB is MOB?s strongest and main support. FOB?s family is a support, but FOB?s parents were the ones taking care of Maya for the last 9 months or so. MOB reports while the family is supportive there is tension at times due to different parenting styles. Depression/Shaken Baby/Safe Sleeping: Information given on said topics. ASSESSMENT: Met with MOB in room, introducing to self and role. Also educated that should baby go to the [facility] then this film writer will follow family while on the SCN. During social work visit the MOB?s [id number] was in the room for part of conversation and then FOB?s father and another male came to visit. MOB stated it is okay to talk with visitors present and then proceeded to talk freely and spontaneously about sensitive matters in the prescence of visitors. When visitors left, this film writer commented on how open MOB seems to be with family. MOB reports close family is aware of MOB?s history and struggles, and that feels okay talking openly. MOB reports if the visitor was a distant relative or friend then would have asked the visitors to leave before talking to this film writer. MOB held good eye contact, relaxed, normal eye contact. MOB nondefensive and appearing matter of fact about substance use history. MOB reports to have needed supplies for the baby, and to be working with children services of [facility] for reunification with older daughter. Talked with MOB about need to call children services and alert to of Marcie, in part due to intrauterine substance exposure to subutex and also due to active case with children services. MOB reports to be aware of this as children services worker reviewed this with MOB prior to delivery. Supportive listening and encouragement given to MOB this date. MOB accepted resources list for [facility] and a mood and anxiety packet. MOB declined referrals to [facility] or [facility]. Safe Plan of Care for infant related to substance use: Continue with medications assisted treatment through [facility] and abstain from any illicit substance use. PLAN: Baby to remain in hospital for 5-7 days for TUAN monitoring. Anticipate MOB and baby to home with [facility] following closely. MOB aware that can ask to talk to social work if any other needs arise during course of baby?s extended stay. Plan to call [facility]. -ALMA English, MARY
--- NOTE | 2019-06-22 11:30 | CASEMGMT ---
Social Work Labor and Delivery Summary: Called [facility] ([facility]) and spoke with Tangela Bruno, territory supervisor. Reported baby?s , family?s current involvement with [facility] for older children, baby?s substance exposure. Let Tangela know that baby?s TUAN scores have been low so far. No reported or observed concerns with mother/child interactions or bonding. Tangela will automobile and property underwriter this write this report up as an Information and Referral, and make sure the current worker for the family is aware of report today. Should any concerns arise during the hospital stay then these concerns could be called in and reported as indicated. Plan: MOB and baby to home when ready for discharge. [facility] will continue to follow in the community. Baby will remain in hospital for TUAN monitoring 5-7 days. MOB has been given community resources lists and depression and anxiety information for home going. No other services requested or indicated at this time, however should concerns arise then nursing or medical staff can reconsult social work as indicated. -JAN English, TRIGONOMETRY TUTOR
--- NOTE | 2019-06-22 13:29 | PCM.PN.OB ---
Patient Problems: Active and Suspected Problems (Last Updated 06/20/19 @ 10:15 by Alexandra Pennington DO) 39 weeks gestation of (Acute) Multiparous (Acute) complicated by Suboxone maintenance, antepartum (Acute) Tobacco abuse (Acute) Obesity affecting (Acute) History of depression (Acute) Hx of macrosomia, of prior , currently (Acute) Positive GBS test (Acute) Subjective: Denies complaints - Physical Exam Vitals/I&O's: Vital Signs Temp Pulse Resp BP 96.7 F L 60 16 112/67 06/22/19 08:30 06/22/19 08:30 06/22/19 08:30 06/22/19 08:30 Oxygen Delivery Method Room Air Weight: 255 lb 1.197 oz Body Mass Index (BMI) 45.1 Intake and Output for Last 24 Hours 06/20/19 06/21/19 06/22/19 23:59 23:59 23:59 Intake Total 6378.10 / 6378.10 984.17 / 984.17 Output Total 2150 / 2150 500 / 500 Balance 4228.10 / 4228.10 484.17 / 484.17 General: Alert, Oriented x3 Abdomen: Soft, Non Tender, Non-Distended - ff mid & below umb Extremities: No Calf Tenderness Current Medications Acetaminophen (Tylenol) 1,000 mg PO Q8H PRN PRN PRN Reason: Pain Score 1-3/10 Bisacodyl (Dulcolax) 10 mg RECTAL UD PRN PRN Reason: If no BM Buprenorphine HCl (Buprenorphine Hcl) 8 mg SL BID ARUN Last Admin: 06/22/19 06:17 Dose: 8 mg Documented by: Dibucaine (Dibucaine) 1 applic TOPICAL TID PRN PRN; Protocol PRN Reason: Discomfort Hydrocortisone (Hytone) 1 applic TOPICAL TID PRN PRN; Protocol PRN Reason: Discomfort Ibuprofen (Motrin) 600 mg PO Q6H PRN PRN PRN Reason: Pain Score 1-3/10 Last Admin: 06/22/19 08:40 Dose: 600 mg Documented by: Methylergonovine Maleate (Methergine) 0.2 mg IM X1 PRN PRN Reason: Excess bleeding/uterine atony Ondansetron HCl (Zofran) 4 mg IV Q4H PRN PRN PRN Reason: Nausea Last Admin: 06/21/19 02:19 Dose: 4 mg Documented by: Senna/Docusate Sodium (Senokot-S, Lashawn-Colace) 1 - 2 tablet PO DAILY PRN PRN PRN Reason: Constipation Simethicone (Mylicon) 80 mg PO PCHS PRN PRN Reason: Indigestion/Stomach pain Sodium Chloride () 5 - 15 ml IV UD PRN PRN Reason: SALINE FLUSH Medical Necessity - Tobacco Use Smoking Status: Heavy Smoker (>10/day) Assessment/Plan All Active Problems (Last Updated 06/20/19 @ 10:15 by Alexandra Pennington DO) 39 weeks gestation of (Acute) Multiparous (Acute) complicated by Suboxone maintenance, antepartum (Acute) Tobacco abuse (Acute) Obesity affecting (Acute) History of depression (Acute) Hx of macrosomia, infant of prior , currently (Acute) Positive GBS test (Acute) PPD#1 Routine care Continue subutex
[2019-06-22 16:00] VITALS: BP 122/75; PULSE 77; RESP 18; TEMP 36
[2019-06-22 20:52] VITALS: BP 136/68; PULSE 71; RESP 16; TEMP 36.6
[2019-06-23 02:00] VITALS: BP 106/49; PULSE 61; RESP 16; TEMP 36.6
--- NOTE | 2019-06-23 03:13 | NURSING ---
patient called this nurse to room due to patient passing large clot. The clot was slightly larger than egg sized. This nurse checked patients fundus which was firm at umbilicus. Patient was instructed to notify nurse of any additional clots or increase in bleeding. '
[2019-06-23] MEDS: Ibuprofen 600 MG Tablet PO (04:30)
[2019-06-23] MEDS: BUPRENORPHINE HCL 8 MG TAB.SUBL SL ×2 (05:57→18:19)
[2019-06-23 08:00] VITALS: BP 108/73; PULSE 72; RESP 16; TEMP 36.2
--- NOTE | 2019-06-23 11:30 | PCM.PN.OB ---
Patient Problems: Active and Suspected Problems (Last Updated 06/20/19 @ 10:15 by Alexandra Pennington DO) 39 weeks gestation of (Acute) Multiparous (Acute) complicated by Suboxone maintenance, antepartum (Acute) Tobacco abuse (Acute) Obesity affecting (Acute) History of depression (Acute) Hx of macrosomia, of prior , currently (Acute) Positive GBS test (Acute) Subjective: No complaints other than a little itching on her back - Physical Exam Vitals/I&O's: Vital Signs Temp Pulse Resp BP 97.9 F 61 16 106/49 L 06/23/19 02:00 06/23/19 02:00 06/23/19 02:00 06/23/19 02:00 Oxygen Delivery Method Room Air Weight: 255 lb 1.197 oz Body Mass Index (BMI) 45.1 Intake and Output for Last 24 Hours 06/21/19 06/22/19 06/23/19 23:59 23:59 23:59 Intake Total 984.17 / 984.17 Output Total 500 / 500 Balance 484.17 / 484.17 General: Alert, Oriented x3 Abdomen: Soft, Non Tender, Non-Distended - ff mid & below umb Extremities: No Calf Tenderness Current Medications Acetaminophen (Tylenol) 1,000 mg PO Q8H PRN PRN PRN Reason: Pain Score 1-3/10 Bisacodyl (Dulcolax) 10 mg RECTAL UD PRN PRN Reason: If no BM Buprenorphine HCl (Buprenorphine Hcl) 8 mg SL BID@0600,1800 ARUN Last Admin: 06/23/19 05:57 Dose: 8 mg Documented by: Dibucaine (Dibucaine) 1 applic TOPICAL TID PRN PRN; Protocol PRN Reason: Discomfort Hydrocortisone (Hytone) 1 applic TOPICAL TID PRN PRN; Protocol PRN Reason: Discomfort Ibuprofen (Motrin) 600 mg PO Q6H PRN PRN PRN Reason: Pain Score 1-3/10 Last Admin: 06/23/19 04:30 Dose: 600 mg Documented by: Methylergonovine Maleate (Methergine) 0.2 mg IM X1 PRN PRN Reason: Excess bleeding/uterine atony Ondansetron HCl (Zofran) 4 mg IV Q4H PRN PRN PRN Reason: Nausea Last Admin: 06/21/19 02:19 Dose: 4 mg Documented by: Senna/Docusate Sodium (Senokot-S, Lashawn-Colace) 1 - 2 tablet PO DAILY PRN PRN PRN Reason: Constipation Simethicone (Mylicon) 80 mg PO PCHS PRN PRN Reason: Indigestion/Stomach pain Sodium Chloride () 5 - 15 ml IV UD PRN PRN Reason: SALINE FLUSH Medical Necessity - Tobacco Use Smoking Status: Heavy Smoker (>10/day) Assessment/Plan All Active Problems (Last Updated 06/20/19 @ 10:15 by Alexandra Pennington DO) 39 weeks gestation of (Acute) Multiparous (Acute) complicated by Suboxone maintenance, antepartum (Acute) Tobacco abuse (Acute) Obesity affecting (Acute) History of depression (Acute) Hx of macrosomia, infant of prior , currently (Acute) Positive GBS test (Acute) PPD#2 D/c to hotel Back itching -no rash, hydrocortisone cream PRN
--- NOTE | 2019-06-23 11:32 | DCINST_ITS ---
Discharge Diet: No Restrictions Discharge Activity: May Drive, May Shower May resume sexual activity in: 6 weeks Weight Bearing Status: Weight bearing as tolerated Additional Instructions: If you experience any of the following, contact your healthcare provider. * Bleeding that soaks a pad every hour for 2 hours * Fever 100.4 or higher * Unrelieved incision or abdominal pain * Swelling, redness, discharge or bleeding from your incision or episiotomy site * Your incision begins to separate * Problems urinating (including inability to urinate or burning while urinating). * Visual changes * Severe headache * Flu-like symptoms * Pain or redness in one of both of your breasts * Pain, warmth, tenderness or swelling in your legs, especially the calf area * Frequent nausea and vomiting * Symptoms of depression or anxiety If you experience any of the following, call 911 or go to the nearest Emergency Room. * Chest pain * Problems breathing * Seizure activity * Partial or complete paralysis of a body part, slurred speech, weakness or drooping of the face, or a sudden inability to walk or hold your balance Allergies/Adverse Reactions: Allergies amoxicillin [Amoxicillin] Allergy (Verified 06/07/19 23:07) Hives cefaclor [From Ceclor] Allergy (Verified 06/07/19 23:07) Hives Penicillins Allergy (Verified 06/07/19 23:07) Hives morphine Adverse Reaction (Verified 06/07/19 23:07) Hives narcotics Adverse Reaction (Uncoded 06/07/19 23:07) Other in recovery for addiction Medications to take at Discharge Ondansetron [Zofran Odt] 4 mg PO Q8H PRN PRN #10 tablet 08/15/18 Buprenorphine HCl 8 mg SL BID 06/20/19 Pnv No.103/Folic/Om3s/Fish Oil [ Gummies] 2 ea PO DAILY 06/20/19 Acetaminophen [Tylenol] 1,000 mg PO Q8H PRN PRN tablet 06/23/19 Buprenorphine HCl 8 mg SL BID@0600,1800 tab.subl 06/23/19 Ibuprofen [Motrin] 600 mg PO Q6H PRN PRN tablet 06/23/19 Primary Care Physician: Care Physician,No Primary [Primary Care Provider] - Test Results: Test results from this visit will be discussed in further detail at your follow- up appointment, if applicable.
[2019-06-23] MEDS: Acetaminophen 500 MG Tablet 1000 MG PO (12:31)
[2019-06-23 16:00] VITALS: BP 122/73; PULSE 72; RESP 20; TEMP 36.2
== END 2019-06-23 18:20 | disposition home or self-care (01) | DRG 560 ==
PROVIDERS: Admitting Provider Obstetrics & Gynecology; Referring Provider Obstetrics & Gynecology; Visit Provider Obstetrics & Gynecology
DX: O69.81X0 Labor and delivery complicated by cord around neck, without compression, not applicable or unspecified (principal); O99.824 Streptococcus B carrier state complicating childbirth; O99.214 Obesity complicating childbirth; E66.9 Obesity, unspecified; O99.334 Smoking (tobacco) complicating childbirth; F17.200 Nicotine dependence, unspecified, uncomplicated; Z3A.39 39 weeks gestation of pregnancy; Z37.0 Single live birth; Z87.59 Personal history of other complications of pregnancy, childbirth and the puerperium; Z86.59 Personal history of other mental and behavioral disorders
CPT/HCPCS: 59025; 59050; 80307; 85025; 86803; 86850; 86900; 86901; 99218; J7040; J7120; G0378; J2405; J3490

== ENCOUNTER 2021-01-06 19:52 | Emergency (ER) | payer MEDICAID, SELFPAY ==
[2021-01-06 19:54] VITALS: BP 145/93; PULSE 76; RESP 16; TEMP 36.9; O2SAT 100; BMI 52.0
[2021-01-06 19:57] VITALS: BP 145/93; PULSE 76; RESP 16; TEMP 36.9; O2SAT 100
--- NOTE | 2021-01-06 20:05 | EKG12_ITS ---
Test Reason : SOB Blood Pressure : / mmHG Vent. Rate : 070 BPM Atrial Rate : 070 BPM P-R Int : 130 ms QRS Dur : 090 ms QT Int : 408 ms P-R-T Axes : 058 079 024 degrees QTc Int : 440 ms Normal sinus rhythm Normal ECG Confirmed by ALKA JONES, LEYDI ([id number]), web content editor KEARA GONSALES ([id number]) on 01/10/2021 9:13:16 AM Referred By: Confirmed By:LEYDI RUCKER MD
--- NOTE | 2021-01-06 20:18 | EDS_ITS ---
HPI History of Present Illness Chief Complaint: Shortness of Breath Informant: patient Narrative Narrative: 30-year-old female states that on she woke with sore throat headache body aches and nasal congestion. Now she states her lungs hurt. She denies any change in cough but does note that she is occasionally bringing up some small sputum. She has a chronic cough related to tobacco use. She denies any fevers. She notes pain in the left ear. No vomiting or diarrhea. No rashes. PFSH PFSH Medical History History of drug abuse History of depression Home Medications PNV 899-[id number]-[id number]-3-fish oil 2 ea PO DAILY 06/20/19 [History Last Taken 06/18/19 21:00 2 gummies] buprenorphine HCl 16 mg SL DAILY 06/20/19 [History Last Taken 06/20/19 07:15 8 mg] acetaminophen 1,000 mg PO Q8H PRN PRN tab 06/23/19 [Rx Last Taken Unknown] Allergy/AdvReac Type Severity Reaction Status Date / Time amoxicillin [Amoxicillin] Allergy Hives Verified 01/06/21 19:54 cefaclor [From Ceclor] Allergy Hives Verified 01/06/21 19:54 Penicillins Allergy Hives Verified 01/06/21 19:54 morphine AdvReac Hives Verified 01/06/21 19:54 narcotics AdvReac Other Uncoded 01/06/21 19:54 Surgical History History of laparoscopic cholecystectomy History of tonsillectomy and adenoidectomy Social History (Updated 01/06/21 @ 20:[address] Chace Givens DO) Smoking Status: Heavy Smoker (>10/day) substance use type: former substance user ROS ROS ED Constitutional Constitutional ED: Denies chills or weight loss Eyes Eyes: Denies change in vision or diplopia ENT ENT ED: Reports ear pain, rhinorrhea and sore throat Cardiovascular Cardiovascular: Reports chest pain; Denies orthopnea, palpitations or racing heartbeat Respiratory/Chest Respiratory/Chest: Reports cough and sputum; Denies dyspnea or orthopnea Gastrointestinal Gastrointestinal: Denies abdominal pain, diarrhea, nausea or vomiting Genitourinary Genitourinary ED: Denies dysuria, hematuria or urinary frequency Musculoskeletal Musculoskeletal: Reports myalgias; Denies arthralgias Integumentary Denies abscess or rash Neurologic Neurologic: Reports headache(s); Denies weakness Psychiatric Psychiatric: Denies anxiety, depression, suicidal ideation or suicidal thoughts Endocrine Endocrinology: Denies polydipsia, polyphagia or polyuria Allergic/Immunologic Allergic/Immunologic ED: Denies mouth swelling, tongue swelling or urticaria EXAM Physical Exam Const Vital Signs: 01/06/21 19:54 01/06/21 19:57 01/06/21 20:57 Temperature 98.5 F 98.5 F 98.2 F Temperature Source Temporal Temporal Temporal Pulse Rate 76 76 74 Respiratory Rate 16 16 16 Respiratory Effort Non-Labored Respiratory Depth Normal Respiratory Pattern Normal Blood Pressure 145/93 H 145/93 H 139/90 H Blood Pressure Mean 110 110 106 Pulse Ox 100 100 100 Oxygen Delivery Method Room Air Room Air Nasal Cannula 01/06/21 21:56 01/06/21 22:00 Temperature 98.0 F 98.0 F Temperature Source Temporal Temporal Pulse Rate 68 68 Respiratory Rate 16 16 Respiratory Effort Respiratory Depth Respiratory Pattern Blood Pressure 141/88 H 141/88 H Blood Pressure Mean 105 105 Pulse Ox 99 99 Oxygen Delivery Method Room Air Room Air Positive well nourished, well developed and obese General Appearance ED: well developed Nutritional Appearance: obese HEENT Reports normocephalic, head/scalp atraumatic and moist mucous membranes HEENT Narrative: Nasal congestion Eyes PERRL and EOMs intact bilaterally Neck no lymphadenopathy, supple and no JVD Resp normal respiratory effort and clear to auscultation bilaterally Cardio regular rate, regular rhythm and no murmurs GI normal to inspection, nondistended, normoactive bowel sounds and non-tender Palpation: soft Back/Spine no CVA tenderness and normal ROM Extremity normal to inspection General Extremety ED: Negative for edema General Extremity: Negative for edema Neuro oriented x3 and CN's II-XII intact bilaterally Sensorium / Orientation: alert Motor Exam: strength 5/5 throughout Psych mental status grossly normal Mood & Affect: Negative for depressed or tearful Skin no rashes or lesions noted and no wounds MDM MDM MDM Narrative Medical decision making narrative: CBC is normal. D-dimer is negative. BMP is normal. Urinalysis is negative. My interpretation of the chest x-ray is no acute process. And her Covid swab is negative. At this point I think the patient most likely has a viral syndrome in her chest discomfort may be related to pleurisy. We will give her a dose of Kenalog and have her take anti- inflammatories at home return if worsening or concerns Lab Data Attestation: I reviewed the patient's lab results. Labs: Laboratory Results - last 24 hr 01/06/21 01/06/21 01/06/21 20:35 20:35 20:35 WBC 6.1 RBC 4.80 Hgb 14.5 Hct 43.0 MCV 89.6 MCH 30.2 MCHC 33.7 RDW Std Deviation 41.1 RDW Coeff of Carole 12.5 Plt Count 229 MPV 10.2 Immature Gran % (Auto) 0.200 Neut % (Auto) 46.4 L Lymph % (Auto) 38.7 Humphreys % (Auto) 8.0 Eos % (Auto) 5.9 H Baso % (Auto) 0.8 Absolute Neuts (auto) 2.8 Absolute Lymphs (auto) 2.37 Nucleated RBC % 0 D-Dimer Quant (PE/DVT) <= 0.27 Sodium 138 Potassium 4.4 Chloride 103 Carbon Dioxide 30.0 Anion Gap 5 BUN 13 Creatinine 0.80 Estim Creat Clear Calc 83.51 Est GFR (MDRD) Af Amer 106 Est GFR (MDRD) Non-Af 88 BUN/Creatinine Ratio 16.2 Glucose 87 Calcium 8.6 Urine Color Urine Clarity Urine pH Ur Specific [place] Urine Protein Urine Glucose (UA) Urine Ketones Urine Occult Blood Urine Nitrite Urine Bilirubin Urine Urobilinogen Ur Leukocyte Esterase Urine RBC Urine WBC Ur Squamous Epith Cells Urine Bacteria Urine Mucus 01/06/21 20:35 WBC RBC Hgb Hct MCV MCH MCHC RDW Std Deviation RDW Coeff of Carole Plt Count MPV Immature Gran % (Auto) Neut % (Auto) Lymph % (Auto) Humphreys % (Auto) Eos % (Auto) Baso % (Auto) Absolute Neuts (auto) Absolute Lymphs (auto) Nucleated RBC % D-Dimer Quant (PE/DVT) Sodium Potassium Chloride Carbon Dioxide Anion Gap BUN Creatinine Estim Creat Clear Calc Est GFR (MDRD) Af Amer Est GFR (MDRD) Non-Af BUN/Creatinine Ratio Glucose Calcium Urine Color Yellow Urine Clarity Sl. Cloudy Urine pH 6.0 Ur Specific [place] 1.020 Urine Protein Negative Urine Glucose (UA) Normal Urine Ketones Negative Urine Occult Blood 10 H Urine Nitrite Negative Urine Bilirubin Negative Urine Urobilinogen Normal Ur Leukocyte Esterase Negative Urine RBC 0-5 SEEN Urine WBC 0 SEEN Ur Squamous Epith Cells 0-5 SEEN Urine Bacteria 0 SEEN Urine Mucus 0 SEEN Radiography Diagnostic Testing: Radiology Impression Chest X-Ray 01/06/21 20:33 IMPRESSION: Normal x-ray examination of the chest. Electronically Signed: Suleiman Welch MD at 21:52 EDT , Service support , EKG Initial EKG: Attestation: I personally reviewed and interpreted this EKG as follows: Comments: EKG demonstrates a normal sinus rhythm at a rate of 70 bpm. No concerning features of ACS or ectopy noted Discharge Plan Triage Chief Complaint: Shortness of Breath ED Provider: Chace Givens Dx/Rx/DC Orders Clinical Impression: Viral syndrome, Pleurisy Instructions: ED Pleurisy, ED Viral Syndrome (Adult) Prescriptions: No Action buprenorphine HCl 8 MG tablet, sublingual 16 mg SL DAILY RF: 0 PNV 461-xvgol-kmrve-3-fish oil 1 EACH tablet,chewable 2 ea PO DAILY RF: 0 acetaminophen 500 MG tablet 1,000 mg PO Q8H PRN PRN (Reason: Pain Score 1-3/10) RF: 0 Primary Care Provider: Care Physician,No Primary Referrals: Stephy Carter MD [STAFF PHYSICIAN] - As Needed (For primary care) Care Physician,No Primary [Primary Care Provider] - Disposition Disposition: Home, Self Care
[2021-01-06] MEDS: Ketorolac 30 MG/ML Syringe IV (20:27)
--- NOTE | 2021-01-06 20:33 | RAD_ITS ---
STUDY: X-RAY CHEST REASON FOR EXAM: Female, 30 years old. chest pain TECHNIQUE: Single AP portable view of the chest. COMPARISON: August 15, 2018 FINDINGS: The lungs are clear and expanded. There is no demonstrated pleural abnormality. Normal size heart. Normal mediastinum and sarai. Normal visualized pulmonary arteries. Normal visualized aortic arch and descending thoracic aorta. Normal visualized thoracic spine. Normal visualized ribs, clavicles, and shoulders. There is no demonstrated abnormality of the visualized soft tissue structures of the upper abdomen. RAD/Chest 1 View (Portable) IMPRESSION: Normal x-ray examination of the chest. Electronically Signed: Suleiman Welch MD at 21:52 EDT , Service support ,
[2021-01-06 20:46] LABS: Bacteria 0 SEEN /hpf (None Seen); Mucous, Urine 0 SEEN /hpf (<or=2+); White Blood Cells 0 SEEN /hpf (0-5)
[2021-01-06 20:47] LABS: Color, Urine Yellow (Yellow); Glucose, Dipstick Normal (Normal); Ketone-Dipstick Negative (Negative); Leukocyte Esterase-Dipstick Negative /ul (Negative); Nitrite-Dipstick Negative (Negative); Occult Blood-Urine 10 /ul (Negative); Protein-Dipstick Negative (Negative); Urine Bilirubin Dipstick Negative (Negative); Urine Clarity Sl. Cloudy (Clear); Urine Urobilinogen Normal (Normal)
[2021-01-06 20:48] LABS: Absolute Lymphocyte Count 2.37 X10^3/uL (0.83-4.51); Absolute Neutrophil Count 2.8 X10^3/uL (2.0-7.7); Basophil# 0.05 X10^3/uL; Basophil% 0.8 % (0-1); Eosinophil# 0.36 X10^3/uL; Eosinophils% 5.9 % (0-5); Hemoglobin 14.5 g/dL (12.0-15.0); Lymphocyte # 2.37 X10^3/ul (0.83-4.51); Lymphocyte % 38.7 % (19-41); Mean Corp Hgb Conc 33.7 g/dL (32-36); Mean Corpuscular Hgb 30.2 pg (27.0-32.0); Mean Corpuscular Volume 89.6 fL (81-99); Mean Platelet Vol. 10.2 fl (6.2-12.0); Monocyte# 0.49 X10^3/uL; NRBC Flagged by Analyzer 0 % (0-5); Neutrophil # 2.84 X10^3/uL (2.7-7.7); Neutrophil % 46.4 % (47-70); Platelet Count 229 K/mm3 (150-450); RBC Distribution Width CV 12.5 % (11.6-14.6); RBC Distribution Width SD 41.1 fl (35.1-43.9); White Blood Count 6.1 K/mm3 (4.4-11.0)
[2021-01-06 20:57] VITALS: BP 139/90; PULSE 74; RESP 16; TEMP 36.8; O2SAT 100; O2SAT 99
[2021-01-06 21:10] LABS: Anion Gap 5 (5-15); BUN 13 mg/dL (7-18); BUN/Creat Ratio 16.2 RATIO (10-20); Calcium,Total 8.6 mg/dL (8.5-10.1); Chloride 103 mmol/L (98-107); EST Glomerular Filtration Rate 88 mL/min (>60); Est Glom Filt Rate - Afr Amer 106 mL/min (>60); Estimated Creatinine Clearance 83.51 ml/min; Glucose 87 mg/dL (74-106); Potassium 4.4 mmol/L (3.5-5.1); Sodium Level 138 mmol/L (136-145)
[2021-01-06 21:14] LABS: Red Blood Cells-Urine 0-5 SEEN /hpf (0-5); Squamous Epithelial Cells - UA 0-5 SEEN /hpf (5-10)
[2021-01-06 21:27] LABS: D-Dimer Quantitative (DVT/PE) <= 0.27 FEU/ug/m (0.27-0.49)
[2021-01-06 21:56] VITALS: BP 141/88; PULSE 68; RESP 16; TEMP 36.7; O2SAT 99
[2021-01-06 22:00] VITALS: BP 141/88; PULSE 68; RESP 16; TEMP 36.7; O2SAT 99
[2021-01-06] MEDS: Triamcinolone Acetonide 40 MG/ML Vial IM (22:30)
== END 2021-01-06 22:51 | disposition home or self-care (01) ==
PROVIDERS: Emergency Provider Emergency Medicine
DX: B34.9 Viral infection, unspecified (principal); R09.1 Pleurisy; J41.0 Simple chronic bronchitis; J02.9 Acute pharyngitis, unspecified; R51.9 Headache, unspecified; M79.10 Myalgia, unspecified site; R09.81 Nasal congestion; E66.9 Obesity, unspecified; Z68.43 Body mass index [BMI] 50.0-59.9, adult; F17.200 Nicotine dependence, unspecified, uncomplicated
CPT/HCPCS: 71045; 80048; 81001; 85025; 85379; 87426; 93005; 96372; 96374; 99283; J7030; A4216

== ENCOUNTER 2021-11-26 22:35 | Emergency (ER) | payer MEDICAID, SELFPAY ==
[2021-11-26 22:36] VITALS: BP 155/88; PULSE 82; RESP 16; TEMP 36.8; O2SAT 98; BMI 47.2
--- NOTE | 2021-11-26 22:49 | ED.VIS.LOWEX ---
HPI History of Present Illness Chief Complaint: Wound Narrative Narrative: Patient presents with left great toe pain after getting her nails clipped yesterday. The pain is medial. No fever or chills. Has a history of ingrown toenails. [facility] Medical History History of drug abuse History of depression Home Medications PNV 425-usvux-qkzda-3-fish oil 2 ea PO DAILY 06/20/19 [History Last Taken 06/18/19 21:00 2 gummies] buprenorphine HCl 16 mg SL DAILY 06/20/19 [History Last Taken 06/20/19 07:15 8 mg] acetaminophen 1,000 mg PO Q8H PRN PRN tab 06/23/19 [Rx Last Taken Unknown] clindamycin HCl 150 mg PO TID #21 cap 11/26/21 [Rx Last Taken Unknown] Allergy/AdvReac Type Severity Reaction Status Date / Time amoxicillin [Amoxicillin] Allergy Hives Verified 01/06/21 19:54 cefaclor [From Ceclor] Allergy Hives Verified 01/06/21 19:54 Penicillins Allergy Hives Verified 01/06/21 19:54 morphine AdvReac Hives Verified 01/06/21 19:54 narcotics AdvReac Other Uncoded 01/06/21 19:54 Surgical History History of laparoscopic cholecystectomy History of tonsillectomy and adenoidectomy Social History Smoking Status: Heavy Smoker (>10/day) substance use type: former substance user ROS ROS ED ROS Narrative Past medical history: Reviewed, she is , she has a history of substance abuse. Medications: Reviewed Social history: Noncontributory Review of systems: Musculoskeletal: Great toe pain as in HPI Skin: No abrasions or lacerations Neurological: No weakness or paresthesias Hematologic: No easy bleeding or easy bruising EXAM Physical Exam Narrative Exam Narrative: Physical exam General: Patient does not appear in significant distress . Head: Normocephalic, Atraumatic Neck: No C-spine tenderness Cardiovascular: Normal distal pulses Back: Nontender, Normal Inspection. Extremities: Left great toe shows very slight paronychia but there is no ingrown toenail on my examination. Skin: No abrasions, no lacerations Neurological: Normal strength and sensation Const Vital Signs: 11/26/21 22:36 Temperature 98.3 F Temperature Source Temporal Pulse Rate 82 Respiratory Rate 16 Blood Pressure 155/88 H Blood Pressure Mean 110 Pulse Ox 98 Oxygen Delivery Method Room Air MDM MDM MDM Narrative Medical decision making narrative: Patient has a slight paronychia but no induration or fluctuance, I do not see a reason to I&D. There is no ingrown toenail. I will treat with antibiotics. Discharge Plan Triage Chief Complaint: Wound ED Provider: Elian Gasca Dx/Rx/DC Orders Clinical Impression: Paronychia, Great toe pain Instructions: ED Paronychia of the Finger or Toe Prescriptions: New clindamycin HCl 150 mg capsule 150 mg PO TID Qty: 21 RF: 0 No Action buprenorphine HCl 8 MG tablet, sublingual 16 mg SL DAILY RF: 0 PNV 603-pjfuj-rqsnw-3-fish oil 1 EACH tablet,chewable 2 ea PO DAILY RF: 0 acetaminophen 500 MG tablet 1,000 mg PO Q8H PRN PRN (Reason: Pain Score 1-3/10) RF: 0 Primary Care Provider: Care Physician,No Primary Referrals: Care Physician,No Primary [Primary Care Provider] - Disposition Disposition: Home, Self Care
[2021-11-26] MEDS: Clindamycin HCl 150 MG Capsule 300 MG PO (22:55)
== END 2021-11-26 23:01 | disposition home or self-care (01) ==
PROVIDERS: Emergency Provider Emergency Medicine; Visit Provider Emergency Medicine
DX: O99.719 Diseases of the skin and subcutaneous tissue complicating pregnancy, unspecified trimester (principal); L03.031 Cellulitis of right toe; O99.330 Smoking (tobacco) complicating pregnancy, unspecified trimester; F17.200 Nicotine dependence, unspecified, uncomplicated; Z3A.00 Weeks of gestation of pregnancy not specified
CPT/HCPCS: 99283

== ENCOUNTER 2022-01-22 21:35 | Emergency (ER) | payer MEDICAID, SELFPAY ==
[2022-01-22 21:36] VITALS: BP 151/71; PULSE 102; RESP 16; TEMP 37; O2SAT 100; BMI 44.6
--- NOTE | 2022-01-22 21:47 | EDS_ITS ---
HPI HPI - GI History of Present Illness Chief Complaint: Constipation Informant: patient Abdominal Pain/Flank Pain Onset: Weeks (2) Context: Gradual Onset Timing: Continuous Quality: - (Pressure) Location: RLQ and LLQ Worsened by: Nothing Relieved by: - (Laxative) Nausea/Vomiting/Emesis GI Symptom: Positive for Nausea and Vomiting Diarrhea/Melena/Hematochezia GI Symptom: Negative for Diarrhea, Melena or Hematochezia Associated Symptoms Associated Symptoms: Negative for Dysuria, Frequency or Hematuria Narrative Narrative: Patient presents with constipation that has been getting progressively worse over the last 2 weeks. Patient states she has been able to have small bowel movements that were hard. Patient states she had to take laxatives to have these bowel movements. Patient admits to some pressure in her lower abdomen and pelvis. Patient states that she has been having difficulty urinating and having urinary retention due to the constipation. Patient denies any dysuria or hematuria. Patient does admit to some nausea and vomiting but states this is due to her . Patient is approximately 13 weeks . Patient denies any fevers or chills. [facility] Medical History History of drug abuse History of depression Home Medications buprenorphine HCl 8 mg sublingual tablet 16 mg SL DAILY hx. opioid abuse 06/20/19 [History Last Taken 06/20/19 07:15 8 mg] 103-folic acid 400 mcg-omeg3 32.5 mg-dha-fish oil chew tablet 2 ea PO DAILY vitamin 06/20/19 [History Last Taken 06/18/19 21:00 2 gummies] acetaminophen 500 mg tablet 1,000 mg PO Q8H PRN PRN Pain Score 1-3/10 06/23/19 [Rx Last Taken Unknown] clindamycin HCl 150 mg capsule 150 mg PO TID #21 caps 11/26/21 [Rx Last Taken Unknown] ondansetron HCl 4 mg tablet 4 mg PO Q8H PRN Nausea 01/22/22 [History Last Taken Unknown] Allergy/AdvReac Type Severity Reaction Status Date / Time amoxicillin [Amoxicillin] Allergy Hives Verified 01/22/22 21:38 cefaclor [From [facility]] Allergy Hives Verified 01/22/22 21:38 Penicillins Allergy Hives Verified 01/22/22 21:38 morphine AdvReac Hives Verified 01/22/22 21:38 narcotics AdvReac Other Uncoded 01/22/22 21:38 Surgical History History of laparoscopic cholecystectomy History of tonsillectomy and adenoidectomy Social History Smoking Status: Heavy Smoker (>10/day) substance use type: former substance user ROS ROS ED Constitutional Constitutional ED: Denies chills or fever(s) Eyes Eyes: Denies blurry vision or change in vision ENT ENT ED: Denies rhinorrhea or sore throat Cardiovascular Cardiovascular: Denies chest pain or palpitations Respiratory/Chest Respiratory/Chest: Denies cough or dyspnea Gastrointestinal Gastrointestinal: Reports constipation, nausea and vomiting Genitourinary Genitourinary ED: Denies dysuria or hematuria Musculoskeletal Musculoskeletal: Denies back pain or neck pain Integumentary Denies abscess or rash Neurologic Neurologic: Denies headache(s) or weakness Allergic/Immunologic Allergic/Immunologic ED: Denies mouth swelling or urticaria EXAM Physical Exam Const Vital Signs: 01/22/22 21:36 Temperature 98.6 F Temperature Source Temporal Pulse Rate 102 H Respiratory Rate 16 Blood Pressure 151/71 H Blood Pressure Mean 97 Pulse Ox 100 Oxygen Delivery Method Room Air Positive well nourished, well developed and obese General Appearance ED: well developed and NAD Nutritional Appearance: obese HEENT Reports moist mucous membranes normocephalic Resp normal respiratory effort and clear to auscultation bilaterally Cardio regular rate and regular rhythm GI non-tender and non-distended Auscultation: normoactive bowel sounds Palpation: soft Neuro CN's II-XII intact bilaterally, moves all extremities, no sensory deficits noted and gait normal Sensorium / Orientation: alert Motor Exam: strength 5/5 throughout Psych mental status grossly normal MDM MDM MDM Narrative Medical decision making narrative: Patient was given a soapsuds enema with no relief of her constipation. Straight cath was performed. Urinalysis does not show any evidence of urinary tract infection or hematuria. Patient was instructed to use [id number] fleets enemas at home. Patient was given a bottle of magnesium citrate. Patient was instructed to drink half bottle tonight and a half bottle in the morning. Patie nt was also instructed to continue her MiraLAX as prescribed. Patient was instructed to follow-up with her primary care physician or [employer] in 3 to 5 days. Patient understood and was agreeable with the plan. All questions were answered. Lab Data Attestation: I reviewed the patient's lab results. Labs: Laboratory Results - last 24 hr 01/22/22 22:15 Urine Color Yellow Urine Clarity Clear Urine pH 6.0 Ur Specific [place] 1.020 Urine Protein 15 H Urine Glucose (UA) Normal Urine Ketones 5 H Urine Occult Blood Negative Urine Nitrite Negative Urine Bilirubin Negative Urine Urobilinogen Normal Ur Leukocyte Esterase Negative Urine RBC 0 SEEN Urine WBC 0 SEEN Ur Squamous Epith Cells 0 SEEN Urine Bacteria RARE Urine Mucus 2+ Discharge Plan Triage Chief Complaint: Constipation ED Provider: Jerel Villa Dx/Rx/DC Orders Clinical Impression: Constipation, Instructions: Eating a High-Fiber Diet, ED Constipation (Adult) Prescriptions: No Action buprenorphine HCl 8 MG tablet, sublingual 16 mg SL DAILY Label Comments: pt. reports that she takes when she wakes in the morning and then the second between [id number] PNV 133-jtwzy-rpjwe-3-fish oil 1 EACH tablet,chewable 2 ea PO DAILY acetaminophen 500 MG tablet 1,000 mg PO Q8H PRN PRN (Reason: Pain Score 1-3/10) 0RF clindamycin HCl 150 mg capsule 150 mg PO TID Qty: 21 0RF ondansetron HCl 4 mg tablet 4 mg PO Q8H PRN (Reason: Nausea) Label Comments: TAKE 1 TABLET BY MOUTH EVERY 8 HOURS NEEDED Primary Care Provider: Care Physician,No Primary Referrals: Bekah Luciano MD [Med Staff - Active Staff] - Eder Christina MD [NON-STAFF] - 5-7 Days Care Physician,No Primary [Primary Care Provider] - Disposition Disposition: Home, Self Care
[2022-01-22 22:31] LABS: Red Blood Cells-Urine 0 SEEN /hpf (0-5); Squamous Epithelial Cells - UA 0 SEEN /hpf (5-10); White Blood Cells 0 SEEN /hpf (0-5)
--- NOTE | 2022-01-22 22:38 | ED.RN ---
STRAIGHT CATH DONE AND URINE SAMPLE OBTAINED. APPROX 400 CC STRAW COLORED URINE EMPTIED.
[2022-01-22 22:48] LABS: Color, Urine Yellow (Yellow); Glucose, Dipstick Normal (Normal); Ketone-Dipstick 5 mg/dl (Negative); Leukocyte Esterase-Dipstick Negative /ul (Negative); Nitrite-Dipstick Negative (Negative); Occult Blood-Urine Negative /ul (Negative); Protein-Dipstick 15 mg/dl (Negative); Urine Bilirubin Dipstick Negative (Negative); Urine Clarity Clear (Clear); Urine Urobilinogen Normal (Normal)
[2022-01-22 22:57] LABS: Bacteria RARE /hpf (None Seen); Mucous, Urine 2+ /hpf (<or=2+)
[2022-01-23] MEDS: Magnesium Citrate 300 ML PO (00:02)
[2022-01-23 00:05] VITALS: PULSE 107; RESP 15; O2SAT 99
== END 2022-01-23 00:06 | disposition home or self-care (01) ==
PROVIDERS: Emergency Provider Emergency Medicine; Visit Provider Emergency Medicine
DX: O99.611 Diseases of the digestive system complicating pregnancy, first trimester (principal); O99.331 Smoking (tobacco) complicating pregnancy, first trimester; O99.211 Obesity complicating pregnancy, first trimester; O21.9 Vomiting of pregnancy, unspecified; F17.200 Nicotine dependence, unspecified, uncomplicated; K59.00 Constipation, unspecified; Z3A.13 13 weeks gestation of pregnancy; E66.9 Obesity, unspecified
CPT/HCPCS: 51701; 81001; 99285; P9612

== ENCOUNTER 2022-07-18 08:15 | Inpatient (IN) | payer MEDICAID, SELFPAY ==
[2022-07-18] VITALS (35 sets, daily range): BP systolic 103–150; BP diastolic 53–82; PULSE 66–108; TEMP 36.2–37; O2SAT 92–100; BMI 51.0
[2022-07-18 09:32] LABS: Absolute Lymphocyte Count 1.82 X10^3/uL (0.83-4.51); Absolute Neutrophil Count 5.4 X10^3/uL (2.0-7.7); Basophil# 0.03 X10^3/uL; Basophil% 0.4 % (0-1); Eosinophils% 3.7 % (0-5); Hematocrit 34.9 % (37-47); Hemoglobin 11.8 g/dL (12.0-15.0); Lymphocyte # 1.82 X10^3/ul (0.83-4.51); Lymphocyte % 22.4 % (19-41); Mean Corp Hgb Conc 33.8 g/dL (32-36); Mean Corpuscular Hgb 30.6 pg (27.0-32.0); Mean Corpuscular Volume 90.4 fL (81-99); Mean Platelet Vol. 10.5 fl (6.2-12.0); Monocyte# 0.49 X10^3/uL; NRBC Flagged by Analyzer 0 % (0-5); Neutrophil # 5.44 X10^3/uL (2.7-7.7); Neutrophil % 67.1 % (47-70); Platelet Count 187 K/mm3 (150-450); RBC Distribution Width CV 13.1 % (11.6-14.6); RBC Distribution Width SD 42.7 fl (35.1-43.9); Red Blood Count 3.86 M/mm3 (4.2-5.4); White Blood Count 8.1 K/mm3 (4.4-11.0)
[2022-07-18] MEDS: Lactated Ringers 1,000 ML 50 ML IV (09:40)
[2022-07-18 10:08] LABS: Amphetamine Urine VISTA NEGATIVE (<1000 ng/mL); Barbiturate Urine VISTA NEGATIVE (< 200 ng/mL); Benzodiazepine Urine VISTA NEGATIVE (< 200 ng/mL); Cocaine Urine VISTA NEGATIVE (< 300 ng/mL); Ecstacy Urine VISTA NEGATIVE (< 500 ng/mL); Methadone Urine VISTA NEGATIVE (< 300 ng/mL); PCP Urine VISTA NEGATIVE (< 25 ng/mL); THC Urine VISTA NEGATIVE (< 50 ng/mL); Vista UDS pH Range 6
[2022-07-18] MEDS: Oxytocin 15 Units/NS 250ml 15 UNITS/250 ML IV.SOLN 2 UNITS IV (10:13)
--- NOTE | 2022-07-18 12:22 | HP.PCM.OB_ITS ---
HPI - General General Date of Admission: 07/18/22 HPI Narrative MIAH MOTLEY, is a 31 F at 39 weeks gestation who presents for scheduled induction of labor for obesity, LGA, moderate polyhydramnios, and use of Subutex during . EFW 98% with AC >99%. Maternal Data Information MORALES Calculator Estimated Delivery Date Method Current WG Current Estimate 07/25/22 Manual 39w 0d PFSH PFSH Medical History History of drug abuse History of depression Home Medications buprenorphine HCl 8 mg sublingual tablet 16 mg SL DAILY hx. opioid abuse 06/20/19 [History Last Taken 06/20/19 07:15 8 mg] 103-folic acid 400 mcg-omeg3 32.5 mg-dha-fish oil chew tablet 2 ea PO DAILY vitamin 06/20/19 [History Last Taken 06/18/19 21:00 2 gummies] acetaminophen 500 mg tablet 1,000 mg PO Q8H PRN PRN Pain Score 1-3/10 06/23/19 [Rx Last Taken Unknown] clindamycin HCl 150 mg capsule 150 mg PO TID #21 caps 11/26/21 [Rx Last Taken Unknown] ondansetron HCl 4 mg tablet 4 mg PO Q8H PRN Nausea 01/22/22 [History Last Taken Unknown] Allergy/AdvReac Type Severity Reaction Status Date / Time amoxicillin [Amoxicillin] Allergy Hives Verified 01/22/22 21:38 cefaclor [From Ceclor] Allergy Hives Verified 01/22/22 21:38 Penicillins Allergy Hives Verified 01/22/22 21:38 morphine AdvReac Hives Verified 01/22/22 21:38 narcotics AdvReac Other Uncoded 01/22/22 21:38 Surgical History History of laparoscopic cholecystectomy History of tonsillectomy and adenoidectomy Social History Smoking Status: Current some day smoker tobacco type: cigarettes substance use type: former substance user History Elective abortions Hx Para 2 Spontaneous abortions Hx # Term Pregnancies Ectopic pregnancies Hx # Pregnancies Multiple births # of living children Visit Details OB Flowsheet Initial Weight: Not Recorded Date -?-?-?-?-?-?-?-?-?-?-?-?- EGA Weight BP Urine Prot -?-?-?-?-?-?-?-?-?-?-?-?- Glucose FHR FuHt Pres Dilation -?-?-?-?-?-?-?-?-?-?-?-?- Effaced St Visit Note 07/18/22 -?-?--?-?-?-?-?-?-?-?-?-?- 39w 0d 288 lb 8 oz 112/60 136/70 103/53 -?-?-?-?-?-?-?-?-?-?-?-?- -?-?-?-?-?-?-?-?-?-?-?-?- NST FHR Rate Baby A Baseline: 125 Variability:: Moderate Accelerations:: 15 x 15 Decelerations:: None NST Reactive:: Yes Uterine Activity:: irregular ROS Eyes Eyes: Denies blurry vision, change in vision or spots in vision ENT HEENT: Denies dizziness or headache(s) Cardiovascular Cardiovascular: Denies abdominal pain, chest pain or dyspnea Respiratory/Chest Respiratory/Chest: Denies cough, dyspnea, shortness of breath at rest or shortness of breath with exertion Gastrointestinal Gastrointestinal: Denies abdominal pain, diarrhea or vomiting Genitourinary Genitourinary: Denies change in urinary stream, difficulty urinating or dysuria Musculoskeletal Musculoskeletal: Reports none Integumentary Integumentary: Denies rash Neurologic Neurologic: Denies dizziness, headache(s), memory loss or weakness Psychiatric Psychiatric: Reports none Vital Signs Vital Signs Vital Signs: 07/18/22 10:03 07/18/22 10:03 07/18/22 10:03 Temperature Temperature Source Temporal Pulse Rate 73 Blood Pressure 112/60 BP Systolic 112 BP Diastolic 60 Pulse Ox 07/18/22 10:03 07/18/22 10:13 07/18/22 10:13 Temperature 98.0 F Temperature Source Pulse Rate 76 Blood Pressure BP Systolic BP Diastolic Pulse Ox 99 07/18/22 10:18 07/18/22 10:18 07/18/22 11:12 Temperature Temperature Source Pulse Rate 83 Blood Pressure 136/70 H BP Systolic 136 BP Diastolic 70 Pulse Ox 98 07/18/22 11:12 07/18/22 11:12 07/18/22 12:05 Temperature Temperature Source Pulse Rate 77 Blood Pressure 103/53 L BP Systolic 103 BP Diastolic 53 Pulse Ox 98 07/18/22 12:05 Temperature Temperature Source Pulse Rate 78 Blood Pressure BP Systolic BP Diastolic Pulse Ox Weight Weight: 288 lb 8 oz Body Mass Index (BMI) 51.0 Physical Exam Const alert, oriented x3 and no apparent distress General Appearance: cooperative Orientation / Consciousness: awake Exam Limitations: no limitations HEENT normocephalic Head and Scalp: normal to inspection Eyes General Eye: normal appearance of both eyes Neck full ROM and no lymphadenopathy Lymph Lymphatic: no lymphadenopathy noted Chest inspection of chest normal Resp normal respiratory effort, normal air movement and clear to auscultation bilaterally Effort and Inspection: able to speak in complete sentences and symmetric chest movement Cardio regular rate and regular rhythm GI normal to inspection, nondistended, normoactive bowel sounds Manual OB Exam: presentation cephalic Back/Spine normal ROM Extremity full ROM and no calf tenderness Skin no rashes or lesions noted General Skin Exam: no breakdown Neuro oriented x3 and CN's II-XII intact bilaterally Psych mental status grossly normal and thought process normal Labs Labs Labs: Blood Type O POSITIVE Antibody Screen NEGATIVE Hct 34.9 % (37-47) L Hgb 11.8 g/dL (12.0-15.0) L Rhogam given: No Rubella- immune HB neg HC neg RPR- NR HIV- NR GBS- POSITIVE Assessment & Plan (1) 39 weeks gestation of : (2) Multiparous: (3) complicated by Suboxone maintenance, antepartum: (4) Obesity affecting : (5) History of depression: (6) Hx of macrosomia, of prior , currently : (7) Positive GBS test: (8) LGA (large for gestational age) fetus affecting mother, antepartum: (9) Polyhydramnios affecting : PLAN: Plan Admit to labor and delivery Routine labs Start IV and run fluids per orders GBS positive- PCN allergy- start Vancomycin IV and continue medication throughout intrapartum Cat. 1 tracing- NST reactive CE- 1/60/-3 Hurley bulb placed without difficulty and balloon filled with 40 cc NS Start Pitocin at 2 mu/min and increase per policy Pain medication if indicated Dr. Luciano notified of admission and is collaborating physician
[2022-07-18] MEDS: 0.9% Normal Saline Single 100 ML IV.SOLN. INTRA-UTER (12:45)
[2022-07-18] MEDS: Lactated Ringers 1,000 ML 150 ML IV (15:43)
--- NOTE | 2022-07-18 18:48 | PCM.PN.BLA ---
Progress Note Patient seen at bedside. Starting to feel contractions. Continues with ambulation and position changes. Assessment & Plan Assessment/Plan (1) 39 weeks gestation of : (2) Polyhydramnios affecting : (3) LGA (large for gestational age) fetus affecting mother, antepartum: (4) Multiparous: (5) complicated by Suboxone maintenance, antepartum: (6) Tobacco abuse: (7) Obesity affecting : (8) Hx of macrosomia, infant of prior , currently : (9) Positive GBS test: PLAN: Plan Hurley bulb out CE- 3.5/60/-3- head ballotable Pitocin 10 mu/min Cat. 1 tracing Continue present plan of care Pain medications/epidural when indicated Anticipate
[2022-07-18] MEDS: Ondansetron 4 MG/2 ML Vial IV (19:27)
[2022-07-18] MEDS: LACTATED RINGERS 500 ML 999 ML IV (21:49)
--- NOTE | 2022-07-18 21:59 | PCM.PN.BLA ---
Progress Note Patient ambulating in room. Starting to feel pain with contractions. Assessment & Plan Assessment/Plan (1) Polyhydramnios affecting : (2) LGA (large for gestational age) fetus affecting mother, antepartum: (3) 39 weeks gestation of : (4) Multiparous: (5) complicated by Suboxone maintenance, antepartum: (6) Tobacco abuse: (7) Obesity affecting : (8) Hx of macrosomia, of prior , currently : (9) Positive GBS test: PLAN: Plan Cat. 1 tracing- NST reactive AROM for small amount of clear/bloody fluid IUPC and FSE placed due to difficulty monitoring due to maternal size Pitocin 10 mu/min- continue to increase per policy Epidural when indicated Anticipate
[2022-07-19] VITALS (41 sets, daily range): BP systolic 108–147; BP diastolic 50–90; PULSE 62–103; RESP 16; TEMP 36.3–37.6; O2SAT 93–99
[2022-07-19] MEDS: Lactated Ringers 1,000 ML 200 ML IV (01:15)
[2022-07-19] MEDS: Ondansetron 4 MG/2 ML Vial IV ×2 (03:53→08:38)
--- NOTE | 2022-07-19 06:45 | PCM.PN.BLA ---
Progress Note Patient comfortable with epidural except on left side. Anesthesia in route to redose. Breathing through contractions. Assessment & Plan Assessment/Plan (1) Polyhydramnios affecting : (2) LGA (large for gestational age) fetus affecting mother, antepartum: (3) 39 weeks gestation of : (4) Multiparous: (5) complicated by Suboxone maintenance, antepartum: (6) Tobacco abuse: (7) Obesity affecting : (8) Hx of macrosomia, of prior , currently : (9) Positive GBS test: PLAN: Plan CE- 8.5/90/0 Moderate amount of clear fluid GBS +- Has had Vancomycin IV x 2 doses Cat. 1 tracing, NST reactive Pitocin 14 mu/min Continue with present management Anticipate
--- NOTE | 2022-07-19 08:23 | PCM.PN.BLA ---
Progress Note At bedside to check on pt. Comfortable and resting at this time. She offers no complaints. Assessment & Plan Assessment/Plan (1) 39 weeks gestation of : PLAN: Comfortable with epidural. On last exam cvx 8.5/70/0 per RN. Will recheck soon for cervical change. Category 1 tracing. Anticipate vaginal delivery. (2) Positive GBS test: (3) Polyhydramnios affecting : (4) LGA (large for gestational age) fetus affecting mother, antepartum: (5) complicated by Suboxone maintenance, antepartum: (6) Multiparous: (7) Tobacco abuse: (8) Obesity affecting : (9) History of depression: (10) Encounter for planned induction of labor:
[2022-07-19] MEDS: Oxytocin 15 Units/NS 250ml 15 UNITS/250 ML IV.SOLN 14 UNITS IV (11:26)
--- NOTE | 2022-07-19 11:29 | PCM.PN.BLA ---
Progress Note At bedside to check on pt. Pushing with nurse. Assessment & Plan Assessment/Plan (1) Encounter for planned induction of labor: PLAN: Pt complete and pushing for almost 2 hours. She states her biggest baby was 9+ lbs and she pushed for 15 min. She says she has never pushed this long. Cvx 10/100/0. Caput present. Discussed with pt slow labor progress and no change in descent with pushing, therefore concern for a macrosomic baby and shoulder dystocia. Discussed possible section. Will continue to push and re assess for progress. (2) Polyhydramnios affecting : (3) LGA (large for gestational age) fetus affecting mother, antepartum: (4) 39 weeks gestation of : (5) Multiparous: (6) complicated by Suboxone maintenance, antepartum: (7) Tobacco abuse: (8) Obesity affecting : (9) History of depression: (10) Positive GBS test:
--- NOTE | 2022-07-19 12:37 | PCM.PN.BLA ---
Progress Note At bedside to check on pt. She has been pushing well and feels comfortable with epidural. Assessment & Plan Assessment/Plan (1) Encounter for planned induction of labor: PLAN: Patient has now been pushing for almost 3 hours with good maternal effort. More caput has developed but still at 0 station. Discussed arrest of descent at this point. Discussed r/b/a of continuing to push vs primary section. Recommend a section at this time given arrest of descent. Discussed chance of a vaginal delivery in a multiparous patient who has been pushing for 3 hours is low. Of note, LGA fetus with polyhydramnios. Discussed risk of bleeding, need for a transfusion, infection, injury to surrounding structures with a section. Discussed she is higher risk for surgery given complete and pushing, and BMI > 50. (2) Polyhydramnios affecting : (3) LGA (large for gestational age) fetus affecting mother, antepartum: (4) 39 weeks gestation of : (5) Multiparous: (6) complicated by Suboxone maintenance, antepartum: (7) Tobacco abuse: (8) Obesity affecting : (9) History of depression: (10) Hx of macrosomia, of prior , currently : (11) Positive GBS test:
[2022-07-19] MEDS: Sodium Citrate/Citric Acid 30 ML UDC PO (12:42)
[2022-07-19] MEDS: Clindamycin 900 MG/50 ML BAG 75 MG IV (13:05)
--- NOTE | 2022-07-19 13:21 | FALS_PTH ---
PATIENT: MIAH MOTLEY LOC: [facility] U#:[id number] AGE/SX: 31/F ROOM: WP006 RE07/18/[address]: Dr. Alexandra Pennington DO : 1990 BED: 1 DIS: 07/23/2022 SPEC #: [id number] RECD: 07/19/22 14:58 STATUS: RYLIE REQ #: [id number] PATRICIO: 07/19/22 13:[address]: Alexandra Pennington DEPT: SURGICAL PATHOLOGY RECD BY: Malina Nash ENTERED: 07/22/22 11:19 SP TYPE: FALL TUBES OTHR DR: Quiana Primary Care Phys Tissues: Fallopian tube Procedures: Surgery Specimen Level II HEADER OPERATION: Tubal ligation PRE-OP DIAGNOSIS: Sterilization TISSUE SUBMITTED: Fallopian tubes, suture in left tube MICROSCOPIC DIAGNOSIS Bilateral fallopian tubes, salpingectomy: Bilateral fallopian tubes, no pathologic diagnosis. SAMMIE:radha 07/23/2022 MICROSCOPIC DESCRIPTION Slides are reviewed. GROSS DESCRIPTION Received in fixative is one container labeled with the patient's name and designated bilateral fallopian tubes, suture in left tube. The specimen consists of bilateral fallopian tubes including fimbrial ends. The left fallopian tube measures 8 cm in length and 0.5 cm in diameter. The right fallopian tube is received in two pieces and measures 6 cm in length and 0.5 cm in dimeter. Sections reveal unremarkable cut surfaces. [employer] sections are submitted in two cassettes as follows: 1 - right fallopian tube, 2??left fallopian tube. / SJ:rg 07/22/2022 TC:4 CPT: 87735 x2
--- NOTE | 2022-07-19 14:08 | PCM.OPRPT ---
Problems Associated Problem List Diagnoses (1) History of drug use: (2) Delivery by section: (3) Obesity: (4) LGA (large for gestational age) fetus affecting mother, antepartum: (5) Polyhydramnios affecting : (6) 39 weeks gestation of : (7) complicated by Suboxone maintenance, antepartum: (8) Tobacco abuse: (9) History of depression: (10) Positive GBS test: (11) Arrest of descent, delivered, current hospitalization: Report of Operation Date of Procedure: 07/20/22 Pre-Operative Diagnosis: 39 week gestation, single viable IUP, obesity affecting , history of drug use, LGA fetus, polyhydramnios, suboxone use, tobacco use, arrest of descent Post-Operative Diagnosis: As above Surgery/Procedure Performed:: PLTCS via pfannenstiel incision Description of Surgical Findings:: Normal appearing uterus and bilateral adnexa. Normal appearing placenta. Infant 9+lb's with apgars 9, 9. Surgeon: Alexandra Pennington computer instructor: Jessica Rivera computer instructor: Gwendolyn ANDREA Type of Anesthesia: Epidural Special Medications: None Specimen's removed: Placenta Drains: Hurley Estimated Blood Loss (mL): 1000 Fluids Replaced: 1200 Description of Procedure: Indications: Patient complete and pushing for 3 hours with arrest of descent. Procedure: The patient was taken to the operating room where the epidural anesthesia was found be adequate. She was prepped and draped in the dorsal position with a leftward tilt. A Pfannenstiel skin incision was made using the scalpel and this was carried down to the underlying layer of fascia. The fascia was incised in midline. The fascia was extended laterally with blunt dissection. The fascia was dissected off the rectus muscles with blunt and sharp dissection. The rectus muscles were in the midline. The peritoneum was entered bluntly and the incision was extended bltnyl with traction. Good visualization of the bladder was noted. A bladder blade was inserted. A low transverse incision was made on the uterus with a scalpel, and the uterine incision was extended with traction bluntly both in a cephalad and caudad direction. The head was attempted to be elevated out of the pelvis by myself and unable to be elevated. Dr. Aguirre then attempted to elevate the head out of the pelvis using gentle pressure vaginally from below by the nursing staff. The infant's head was able to be elevated out of the pelvis in a flexed position and delivered through the hysterotomy, followed by the body without any force, traction, or delay. The cord was clamped and cut immediately and the was handed off to the awaiting nursery staff. The placenta was removed with manual extraction. The uterus was exteriorized. The uterus was cleared of all clot and debris. The uterine incision was closed with 1-0 Vicryl in a running locked fashion. Hemostasis was noted. Bilateral adnexa were normal-appearing. Uterus was placed back into the abdomen. Hemostasis was then again noted. The peritoneum was closed with 3-0 Vicryl in a running fashion. The rectus muscles were hemostatic. The fascia was closed with strata fix in a running fashion. The subcutaneous space was irrigated and made hemostatic with Bovie cautery. Subcutaneous space was reapproximated 3-0 Vicryl. Skin was closed with 4-0 Monocryl in a subcuticular fashion. A silver dressing was placed. Instrument, sponge, sharp counts were correct. The patient was taken to recovery in stable condition. Grafts/Implants Used: None Procedure Start Time: 13:14 Complications None Admit VTE Documentation VTE Present on Admission: No VTE Mechan Device Prophylaxis: SCD's
[2022-07-19] MEDS: Oxytocin 15 Units/NS 250ml 15 UNITS/250 ML IV.SOLN 83 UNITS IV (14:30)
[2022-07-19 14:58] LABS: Pathology Specimen OB SEE PATHOLOGY REPORT
[2022-07-19] MEDS: Acetaminophen 500 MG Tablet PO (17:29)
--- NOTE | 2022-07-19 18:51 | CASEMGMT ---
Social Work Consult received for history of maternal substance use. This keno writer/runner is familiar with patient from prior delivery in 2019. Noted unplanned this afternoon. Collaboration with cable tender and confirmed baby is to be monitored for 5 days due to intra-uterine exposure to Subutex. PLAN: In light of surgery today and baby's extended stay, will plan to see patient for assessment on Friday07.22.22. Social work is however available in-house on Friday07.20.22 should emergent needs arise. -ALMA English, AUTO PAINTER HELPER
[2022-07-19] MEDS: buprenorphine HCL 8 MG TAB.SUBL SL ×2 (19:23→19:27)
[2022-07-19] MEDS: Ketorolac 30 MG/ML Syringe IV (20:50)
[2022-07-19] MEDS: Acetaminophen 500 MG Tablet 1000 MG PO (23:51)
[2022-07-20 01:00] VITALS: BP 103/55; PULSE 71; RESP 16; TEMP 37; O2SAT 97
[2022-07-20] MEDS: Ketorolac 30 MG/ML Syringe IV ×2 (03:01→09:29)
[2022-07-20 05:06] VITALS: BP 126/56; PULSE 81; RESP 16; TEMP 36.7
[2022-07-20 05:08] LABS: Hematocrit 28.5 % (37-47); Hemoglobin 9.5 g/dL (12.0-15.0); Mean Corp Hgb Conc 33.3 g/dL (32-36); Mean Corpuscular Hgb 30.6 pg (27.0-32.0); Mean Corpuscular Volume 91.9 fL (81-99); Mean Platelet Vol. 10.6 fl (6.2-12.0); Platelet Count 174 K/mm3 (150-450); RBC Distribution Width CV 13.1 % (11.6-14.6); RBC Distribution Width SD 43.4 fl (35.1-43.9); White Blood Count 12.7 K/mm3 (4.4-11.0)
[2022-07-20] MEDS: Enoxaparin 40 MG/0.4 ML Syringe SC ×2 (06:12→18:08)
[2022-07-20] MEDS: Acetaminophen 500 MG Tablet 1000 MG PO ×3 (06:12→18:11)
[2022-07-20 08:35] VITALS: BP 102/55; PULSE 67; RESP 16; TEMP 36.1; O2SAT 97
--- NOTE | 2022-07-20 09:23 | PCM.PN.OB ---
Subjective Subjective She is doing well this morning. Ambulating and voiding without difficulty. Tolerating regular diet without nausea or vomiting. Pain is controlled with Tylenol and Toradol. Lochia is normal. She notes occasional lightheadedness with ambulation. No chest pain, shortness of breath, leg pain. Objective Data Objective Data Vital Signs: Vital Signs Temp Pulse Resp BP Pulse Ox O2 Del Method 97.0 F L 67 16 102/55 L 97 Room Air 07/20/22 08:35 07/20/22 08:35 07/20/22 08:35 07/20/22 08:35 07/20/22 08:35 07/20/22 08:35 Oxygen Delivery Method Room Air Weight: 288 lb 8 oz Body Mass Index (BMI) 51.0 Intake & Output: Intake and Output for Last 24 Hours 07/18/22 07/19/22 07/20/22 23:59 23:59 23:59 Intake Total 3951.46 / 3951.46 2810.04 / 2810.04 Output Total 2600 / 2600 300 / 300 Balance 3951.46 / 3951.46 210.04 / 210.04 -300 / -300 Lab / Micro Data Result Diagrams: 07/20/22 04:55 Labs: Laboratory Results - last 24 hr 07/20/22 04:55: WBC 12.7 H, RBC 3.10 L, Hgb 9.5 L, Hct 28.5 L, MCV 91.9, MCH 30.6, MCHC 33.3, RDW Std Deviation 43.4, RDW Coeff of Carole 13.1, Plt Count 174, MPV 10.6 Physical Exam Const alert and no apparent distress General Appearance: comfortable HEENT normocephalic Resp normal respiratory effort GI soft to palpation and non-distended GI Narrative: ATTP, non acute, dressing c/di Extremity no calf tenderness Assessment & Plan (1) complicated by Suboxone maintenance, antepartum: (2) Obesity: (3) Delivery by section: PLAN: POD#1 s/p PLTCS doing well. Pain controlled. Discussed we cannot take away her pain, and pain control is more difficult with suboxone use. She is ambulating, voiding, and tolerating a regular diet. Cont routine post op care. (4) History of depression: (5) History of drug use:
[2022-07-20] MEDS: 0.9% Saline Lock 10 ML Syringe IV (09:30)
[2022-07-20] MEDS: Senna/Docusate Sodium 1 Tablet PO (09:30)
[2022-07-20] MEDS: buprenorphine HCL 8 MG TAB.SUBL 16 MG SL (10:09)
[2022-07-20 12:02] VITALS: BP 116/48; PULSE 80; RESP 16; TEMP 36.3; O2SAT 97
[2022-07-20] MEDS: Ibuprofen 600 MG Tablet PO ×2 (15:07→21:08)
[2022-07-20 15:23] VITALS: BP 107/57; PULSE 78; RESP 17; TEMP 36.2; O2SAT 97
[2022-07-20] MEDS: buprenorphine HCL 8 MG TAB.SUBL SL (17:16)
[2022-07-20 19:00] VITALS: BP 110/62; PULSE 80; RESP 16; TEMP 36.3; O2SAT 98
--- NOTE | 2022-07-20 21:44 | PN_ITS ---
Progress Note Called to check on pt's incision. At bedside to evaluate. The patient feels OK. She states her pain is somewhat controlled with just Tylenol and Motrin but she is still having some discomfort as she is up moving around. She denies fevers, chills, nausea, vomiting. She has been ji PO today and just had some [employer]. She says she has been passing gas. She went out to smoke earlier today against our recommendation and says she felt sore after that. She denies CP, SOB, leg pain. Lochia normal. Voiding without difficulty. Physical Exam Const alert and no apparent distress General Appearance: comfortable HEENT normocephalic Resp normal respiratory effort GI soft to palpation and non-distended GI Narrative: ATTP, non acute, dressing not sticking on the sides given size of her pannus. There is some serosanguineous drainage on the dressing but the dressing is not saturated. The dressing was removed and replaced with sterile gloves, and the i ncision was intact with no evidence of infection and no large amount of drainage. Assessment & Plan Assessment/Plan (1) Delivery by section: PLAN: Some SS drainage and the dressing is not in place given the size of the pannus. The dressing was replaced and incision appears to be healing well without signs of infection, large amounts of drainage, or separation. Abdomen is non acute and she is well appearing. Cont Tylenol and Motrin for pain control. Discussed pain control expectations. She feels her lightheadedness is improving. Continue routine post op care and will reassess in AM. (2) Obesity: (3) History of drug use:
--- NOTE | 2022-07-20 22:12 | NURSING ---
This RN took over care at 1930. Received report from Montse ROBERSON. PT had not been up to ambulate 8 hours post op due to feeling very painful. farrar catheter still in place and LR is running at 100 mL/hr.
[2022-07-21] MEDS: Acetaminophen 500 MG Tablet 1000 MG PO ×4 (00:02→20:48)
[2022-07-21 03:00] VITALS: BP 110/46; PULSE 78; RESP 16; TEMP 36.4; O2SAT 98
[2022-07-21] MEDS: Ibuprofen 600 MG Tablet PO ×3 (03:05→20:47)
--- NOTE | 2022-07-21 04:30 | PCM.PN.OB ---
Subjective Subjective Doing well. Pain is controlled with Tylenol and Motrin. She is ambulating and voiding without difficulty. She is eating without nausea or vomiting. She is passing gas. Lochia is normal. Her lightheadedness and dizziness have improved. She denies chest pain, shortness of breath, leg pain. Objective Data Objective Data Vital Signs: Vital Signs Temp Pulse Resp BP Pulse Ox O2 Del Method 97.6 F L 78 16 110/46 L 98 Room Air 07/21/22 03:00 07/21/22 03:00 07/21/22 03:00 07/21/22 03:00 07/21/22 03:00 07/21/22 03:00 Oxygen Delivery Method Room Air Weight: 288 lb 8 oz Body Mass Index (BMI) 51.0 Intake & Output: Intake and Output for Last 24 Hours 07/19/22 07/20/22 07/21/22 23:59 23:59 23:59 Intake Total 2810.04 / 2810.04 Output Total 2600 / 2600 300 / 300 Balance 210.04 / 210.04 -300 / -300 Lab / Micro Data Result Diagrams: 07/20/22 04:55 Labs: Laboratory Results - last 24 hr 07/20/22 04:55: WBC 12.7 H, RBC 3.10 L, Hgb 9.5 L, Hct 28.5 L, MCV 91.9, MCH 30.6, MCHC 33.3, RDW Std Deviation 43.4, RDW Coeff of Carole 13.1, Plt Count 174, MPV 10.6 Physical Exam Const alert and no apparent distress General Appearance: comfortable Resp normal respiratory effort GI soft to palpation and non-distended GI Narrative: ATTP, non acute, silver dressing intact and there is blood from her pad coming up onto the silver dressing given pannus Extremity no calf tenderness Extremity Narrative: Bilateral LE edema Assessment & Plan (1) Delivery by section: PLAN: POD#2 s/p RLTCS for arrest of descent. Doing well. She has discomfort but pain has been managed with Motrin and Tylenol. Dizziness has improved. Recheck CBC this AM. Discussed possible need for IV iron. Anticipate possible discharge home tomorrow. (2) Obesity: (3) History of drug use: (4) Tobacco abuse: (5) complicated by Suboxone maintenance, antepartum:
[2022-07-21 05:22] LABS: Absolute Lymphocyte Count 2.15 X10^3/uL (0.83-4.51); Absolute Neutrophil Count 6.7 X10^3/uL (2.0-7.7); Basophil# 0.02 X10^3/uL; Basophil% 0.2 % (0-1); Eosinophil# 0.29 X10^3/uL; Eosinophils% 2.9 % (0-5); Hematocrit 26.6 % (37-47); Lymphocyte # 2.15 X10^3/ul (0.83-4.51); Lymphocyte % 21.6 % (19-41); Mean Corp Hgb Conc 33.8 g/dL (32-36); Mean Corpuscular Hgb 31.5 pg (27.0-32.0); Mean Platelet Vol. 10.7 fl (6.2-12.0); Monocyte# 0.73 X10^3/uL; Monocyte% 7.3 % (0-10); NRBC Flagged by Analyzer 0 % (0-5); Neutrophil # 6.74 X10^3/uL (2.7-7.7); Neutrophil % 67.6 % (47-70); Platelet Count 169 K/mm3 (150-450); RBC Distribution Width CV 13.2 % (11.6-14.6); RBC Distribution Width SD 43.8 fl (35.1-43.9); Red Blood Count 2.86 M/mm3 (4.2-5.4)
--- NOTE | 2022-07-21 08:07 | NURSING ---
This RN spoke to Dr. Pennington about patients silver Mepilex lifting and looking like their was serosanguineous drainage around the adhesive. Physician came to the bedside and replaced the dressing, assessed the patients incision and assured pt that it all looked well. This RN will continue to assess new Mepilex for any drainage or redness.
--- NOTE | 2022-07-21 08:16 | NURSING ---
report given to Montse ROBERSON, that RN assumed care at 0700
[2022-07-21] MEDS: Senna/Docusate Sodium 1 Tablet PO (10:13)
[2022-07-21] MEDS: Enoxaparin 40 MG/0.4 ML Syringe SC ×2 (10:14→21:46)
[2022-07-21 10:19] VITALS: BP 110/46; PULSE 72; RESP 18; TEMP 36.6; O2SAT 98
[2022-07-21] MEDS: Ondansetron ODT 4 MG Tablet PO (11:24)
[2022-07-21 14:15] VITALS: BP 133/65; PULSE 98; RESP 18; TEMP 37.2; O2SAT 97
[2022-07-21] MEDS: buprenorphine HCL 8 MG TAB.SUBL 16 MG SL (14:26)
[2022-07-21 21:19] VITALS: BP 131/70; PULSE 80; RESP 16; TEMP 36.5; O2SAT 96
[2022-07-21] MEDS: buprenorphine HCL 8 MG TAB.SUBL SL (21:46)
[2022-07-22] MEDS: Ibuprofen 600 MG Tablet PO ×4 (02:09→21:07)
[2022-07-22] MEDS: Acetaminophen 500 MG Tablet 1000 MG PO ×4 (02:09→21:07)
[2022-07-22 02:13] VITALS: BP 105/60; PULSE 71; RESP 16; TEMP 36.7; O2SAT 97
[2022-07-22] MEDS: Ondansetron ODT 4 MG Tablet PO (05:58)
--- NOTE | 2022-07-22 08:18 | PCM.PN.OB ---
Subjective Subjective Doing well per patient and nursing staff. Ambulating and taking PO without difficulty. Voiding and passing flatus. Pain controlled. Denies headache, visual changes, chest pain, shortness of breath, leg pain or increased bleeding. and formula feeding. Lochia normal. Baby in room under bili lights. Objective Data Objective Data Vital Signs: Vital Signs Temp Pulse Resp BP Pulse Ox O2 Del Method 98.0 F 71 16 105/60 97 Room Air 07/22/22 02:13 07/22/22 02:13 07/22/22 02:13 07/22/22 02:13 07/22/22 02:13 07/22/22 02:13 Oxygen Delivery Method Room Air Weight: 288 lb 8 oz Body Mass Index (BMI) 51.0 Intake & Output: Intake and Output for Last 24 Hours 07/20/22 07/21/22 07/22/22 23:59 23:59 23:59 Output Total 300 / 300 Balance -300 / -300 Lab / Micro Data Result Diagrams: 07/21/22 04:50 ROS Constitutional Constitutional: Reports systems reviewed and no addt'l complaints, except as documented; Denies headache(s) Eyes Eyes: Denies acute decrease in peripheral vision, blurry vision or change in vision ENT HEENT: Reports systems reviewed and no addt'l complaints, except as documented Cardiovascular Cardiovascular: Denies chest pain or dizziness Respiratory/Chest Respiratory/Chest: Denies cough, dyspnea, dyspnea on exertion, shortness of breath at rest or shortness of breath with exertion Gastrointestinal Gastrointestinal: Denies abdominal pain, diarrhea, nausea or vomiting Genitourinary Genitourinary: Denies abdominal discomfort Musculoskeletal Musculoskeletal: Denies limited range of motion Integumentary Integumentary: Reports systems reviewed and no addt'l complaints, except as documented Neurologic Neurologic: Reports systems reviewed and no addt'l complaints, except as documented Psychiatric Psychiatric: Reports systems reviewed and no addt'l complaints, except as documented Endocrine Endocrinology: Reports systems reviewed and no addt'l complaints, except as documented Hematologic/Lymphatic Hematologic/Lymphatic: Reports systems reviewed and no addt'l complaints, except as documented Allergic/Immunologic Allergic/Immunologic: Reports systems reviewed and no addt'l complaints, except as documented Physical Exam Const alert and oriented x3 General Appearance: cooperative Orientation / Consciousness: awake, oriented to person, oriented to place and oriented to time Exam Limitations: no limitations HEENT normocephalic Head and Scalp: normal to inspection, normocephalic and atraumatic Face and Sinus: normal facial exam Eyes General Eye: normal appearance of both eyes Neck full ROM Chest Chest: symmetrical chest wall rise Resp normal respiratory effort and normal air movement Auscultation: clear to auscultation bilaterally Cardio regular rate, regular rhythm, S1 normal heart sound, S2 normal heart sound, no murmurs, no rub, no gallops and no clicks GI normal to inspection, nondistended, normoactive bowel sounds and non-tender GI Narrative: Incision dressing dry and intact. appearance of the vagina normal Narrative: Nikkie's negative bilaterally Bladder / Kidney Exam: no CVA tenderness Back/Spine normal ROM Extremity normal to inspection and full ROM Skin no rashes or lesions noted Neuro oriented x3, CN's II-XII intact bilaterally and moves all extremities Sensorium / Orientation: awake, alert and oriented to person Motor Exam: clonus absent Deep Tendon Reflexes: Rt Patellar (L4): 2+ and Lt Patellar (L4): 2+ Assessment & Plan (1) Arrest of descent, delivered, current hospitalization: (2) History of drug use: (3) Delivery by section: (4) Obesity: (5) Tobacco abuse: PLAN: Plan 1) POD #3 LTCS 2) Pain controlled. Continues Subutex, no narcotics 3) I&O 4) Vitals stable 5) Baby with bililights in room. 6) Planning D/C home tomorrow to hot status 7) Follow up in 1-2 weeks for incision check and 6 weeks for PP visit
[2022-07-22 09:26] VITALS: BP 122/75; PULSE 76; RESP 16; TEMP 36.3; O2SAT 99
[2022-07-22] MEDS: Senna/Docusate Sodium 1 Tablet PO (10:14)
[2022-07-22] MEDS: Enoxaparin 40 MG/0.4 ML Syringe SC ×2 (10:15→22:12)
[2022-07-22] MEDS: buprenorphine HCL 8 MG TAB.SUBL 16 MG SL (10:47)
[2022-07-22 14:45] VITALS: BP 127/68; PULSE 78; RESP 16; TEMP 36.2; O2SAT 100
--- NOTE | 2022-07-22 17:00 | CASEMGMT ---
Social Work Assessment Labor and Delivery Unit Patient Address: [address] [place] [address], [address], [place] [address] Phone number: [phone] Date of Referral: 07.20.2022 Time of Referral: 427 Referred By: Dr. Pennington Date of Intervention: 07.22.22 Time of Intervention: Approximately [id number] Reason for Referral: Maternal history of substance use, anxiety, depression. History obtained from: Medical records including prior social work assessment from 2019 and mother of baby (MOB) Kiesha Espino; IGNACIO's [id number]-sg-iyo Meagan arrived for latter part of conversation, and MOB voiced agreement with Meagan remaining in the room. Household composition: MOB, father of baby (FOB) Jewel García, and MOB's older children. FOB has 2 children from prior relationship who visit regularly. Intend for to reside in this home. Patient's parent/guardian status: IGNACIO is a 31 year old female, involved with FOB who is also 33. Together fo 4 years and now have 2 children together. MOB denies abuse or concerns for safety in this relationship. MOB minor children include: Maya Reardon (age 7), Marcie García (06.21.2019), and baby boy Best García (07.19.22). FOB's minor children who are: Isaac (11) and Burke García (9). Medical History: IGNACIO is G5, P2 to 3 after delivering Best. care adequate. Birthweight for Best 9 pound 5 ounces. Apgars 9 and 9 at 1 and 5 minutes of life. exposure to Subutex in utero. Educational Status: IGNACIO has her GED. Reports to be able to read, write, and understand what is read. Financial Status: MOB reports has not been working outside of the home. MOB reports FOB works doing a little of everything and most recently has been snow plowing. Infant Supplies: MOB reports to have needed supplies including both a bassinet and pack-n-play for sleeping, car seat, clothing, diapers, wipes, breast pump. Childcare/Caregiver(s): MOB will be primary caregiver. Transportation: Reports to drivers license and 2 vehicles. No issues reported. Programs/Agencies Involved: [facility] medicaid. [place]. [facility] and worker is reported as Nina. [facility] for MAT seeing counselor Hiwot, as well as physician Dr. Sotelo. Children Services/Legal Issues: No reported legal issues at this time. IGNACIO denies any current involvement [facility] children services. IGNACIO does have history with [facility] after Maya was born for substance exposure in utero, and then at time of Dennise's was still working with [facility] as Maya had perviously been removed from the home for IGNACIO failing a drug test. However IGNACIO reports was able to reunify with Maya and has had no [facility] cases since reunification shortly after Marcie was born. MOB reports worked through [facility] program. Behavioral Health Issues: Mental Health History: Per past assessment, IGNACIO has history of depression and anxiety, diagnosed as a teen. MOB confirms history of depression, anxiety and PPD history during this assessment. Reports the PPD was after Maya, but not after Marcie. No reported history of suicidal thoughts, plans, or attempts. No reported thoughts to harm others. Substance Use History: MOB reports to this technical writer and editor to be 1,530 days clean as of 07.22.22 from illicit substance use. Per past assessment, MOB with history of using drugs off and on since the age of 19. IGNACIO previously reported using opiates during the with Maya, and got onto Subutex during that . IGNACIO previously reported relapsing 2 times after Maya was born, with the first being a month after Maya?s as MOB went off Subutex and then the next being in 2018 when IGNACIO was dealing with stress from her ex. MOB states sober date as 05.14.2018. Prior drugs of choice were narcotic pain pills, heroin, and cocaine. No history of IV use. Denies history of issues with alcohol or marijuana. No reports of meth history. Smoke tobacco daily. IGNACIO reports has been on Subutex for several years now, currently in treatment [facility] in [place]. Per note on chart from [facility], the patient last saw Dr. Sotelo on 07.17.2022, and confirms prescription for 24mg per day of Subutex. Family History:chart indicates MOB?s father with history of alcohol use issues ( since 2009) and then MOB?s brother is an intermittent user of substances. Drug Screens: Maternal drug screen negative on 07.18.2022. Infant's urine is negative with the exception of subutex. Meconium is pending. Fentanyl was also drawn on baby. TUAN: ESC method of withdrawal monitoring being done. So far scores have been 3's, which would be best possible scores. Family/Social Stressors: MOB reports stress from the stepchildren's mother Etta Salcidofigyanet. MOB reports Etta has not been addressing the needs of Isaac and Burke regarding treatment of lice. MOB reports the children, specifically Isaac had an infestation, which was treated by MOB and FOB on 06.24.2022. MOB reports Etta was told about this, of need to retreat and also treat the home. MOB reports to MOB's knowledge, as of 07.16.22 tEta still has not done Etta's part in caring for Etta's home or retreating the kids. MOB reports is concerned about the children's wellbeing, as well as how to really stop the spread of the lice between homes if Etta is not caring for Etta's home environment. MOB reports has considered calling [facility], but did not as wanted to give Etta a chance to do the right thing. However, with time passing and Etta reportedly not addressing the needs MOB reports has been feeling increasing stress. MOB reports then Etta, for some reason just service FOB with court papers, filing for full custody of the kids. MOB report this situation has been stressful. Also, this labor and delivery was stressful, with long period of pushing with failure to progress ending in a caesarian section. MOB reports has also been worried for Best and how the baby would do wiht withdrawal monitoring. Support Systems: MOB reports support from FOB, FOB's sister Meagan, and then other family. Depression/Shaken Baby/Safe Sleeping: Information reviewed. ASSESSMENT: Met with MOB in room, introducing to self and social work role. Reminded MOB this technical writer and editor worked with MOB during admission with Marcie. MOB voiced remembering. MOB cooperative, pleasant, non-defensive and willing to engage in conversation. MOB was breast-feeding infant upon social professionals entering the room, continued to care for the baby during social work visit. MOB was attentive and appropriate with infant's care. This technical writer and editor noted concerns in the medical records about infant's weight loss of 13%, plan for supplementation and MOB not feeling comfortable with increased supplementation. This technical writer and editor explored with MOB how feeding is going. MOB reports was able to breast-feed for a year with Marcie, and hopes to do the same for Best. MOB reports believe the initial concerns with Best's weight was likely due to the baby holding onto some water weight and the noted weight not being accurate. MOB reports was explained by staff this scenario could be a possibility. MOB reports to feel that feeding is now going better. MOB reports no concern with housing, transportation, or supplies to care for the . MOB was talkative about family/social stressors relating to MOB stepchildren's mother. MOB referenced several times that felt should have call children services about the life issue, but had not done so. MOB spontaneously showed this technical writer and editor videos, without this technical writer and editor asking, and multiple pictures showing what appears to be a lice infestation on a female youth's head. This technical writer and editor was able to visibly see in the video, on the phone, what appeared to be lice moving around on the girl's head. This technical writer and editor also observed pictures of what appeared to be large amounts of lice and hair in a bathroom sink. This technical writer and editor did express concern for the children if the parents are not following up with retreatment, as MOB is stating this has not happened. MOB agreed lack of pretreatment is a concern. This technical writer and editor also expressed concern that re-infestation may continue to happen between homes if both homes or not properly treated. This technical writer and editor explained to MOB that this technical writer and editor is a mandated juice tester for concerns of abuse or neglect, and that this technical writer and editor would feel comfortable calling children services about MOB's expressed concern for the minor children in the family. MOB accepting of this technical writer and editor's explanation of being a mandated juice tester. This technical writer and editor also addressed with MOB mandated reporting for infants who are substance exposed in utero, even with prescribed medication. This technical writer and editor let MOB know that would be reporting to children services that MOB appears to be in the treatment program, and the notation on MOB's chart from [facility] indicating MOB's last visit and prescribed dosage of Subutex. Educated MOB that it is not an automatic screen in for investigation when the exposure is to a prescribed regimen that has been followed. Note, MOB continue to speak with this technical writer and editor in an open way, even after discussion about mandated reporting children services. Safe Plan of Care for infant related to substance use: Continue with treatment in [facility] with the MAT program. Reports plan to transition form Sublingual Subutex to Sublicaid injection in the next few months. Plans to continue abstinence of illicit substances. PLAN: will discharge home with MOB when ready, social work will be following up with MOB again prior to infant's discharge. MOB is aware this technical writer and editor will be returning for another visit. Plan to provide handouts on community resources, shaken baby, and safe sleeping. Plan to notify [facility] children services regarding infant substance exposure to Subutex, family risk factors including concern for potential neglect of children's healthcare needs in relation to retreatment of lice in the home (which from MOB's reports to this technical writer and editor would be more of a concern from the children's mother rather than about the MOB and FOB). -ALMA English, MARY *This note was generated with HomeTouch dictation software. It may contain incorrect words, spelling, and punctuation that were not noted in review of the chart prior to signing
[2022-07-22 20:25] VITALS: BP 122/63; PULSE 80; RESP 17; TEMP 36.6
[2022-07-22] MEDS: buprenorphine HCL 8 MG TAB.SUBL SL (22:12)
[2022-07-23 01:49] VITALS: BP 122/62; PULSE 81; RESP 18; TEMP 36.3
[2022-07-23] MEDS: Acetaminophen 500 MG Tablet 1000 MG PO ×4 (03:06→21:17)
[2022-07-23] MEDS: Ibuprofen 600 MG Tablet PO ×4 (03:06→21:17)
[2022-07-23 08:08] VITALS: BP 105/54; PULSE 90; RESP 16; TEMP 36.9; O2SAT 98
--- NOTE | 2022-07-23 08:42 | PCM.PN.OB ---
Subjective Subjective Patient seen at bedside. Ambulating without difficulty. Voiding and passing flatus. C/O feet feeling tight due to edema. Continues to wear SCD's. without difficulty. Denies headache, visual changes, dizziness, SOB or CP. Pain is controlled. Objective Data Objective Data Vital Signs: Vital Signs Temp Pulse Resp BP Pulse Ox O2 Del Method 98.4 F 90 16 105/54 L 98 Room Air 07/23/22 08:08 07/23/22 08:08 07/23/22 08:08 07/23/22 08:08 07/23/22 08:08 07/23/22 08:08 Oxygen Delivery Method Room Air Weight: 288 lb 8 oz Body Mass Index (BMI) 51.0 Lab / Micro Data Result Diagrams: 07/21/22 04:50 ROS Eyes Eyes: Denies blurry vision, change in vision or spots in vision ENT HEENT: Denies dizziness or headache(s) Cardiovascular Cardiovascular: Denies abdominal pain, chest pain or dyspnea Respiratory/Chest Respiratory/Chest: Denies cough, dyspnea, shortness of breath at rest or shortness of breath with exertion Gastrointestinal Gastrointestinal: Denies abdominal pain, diarrhea or vomiting Genitourinary Genitourinary: Denies change in urinary stream, difficulty urinating or dysuria Musculoskeletal Musculoskeletal: Reports none Integumentary Integumentary: Denies rash Neurologic Neurologic: Denies dizziness, headache(s), memory loss or weakness Physical Exam Const alert and no apparent distress General Appearance: cooperative and comfortable Exam Limitations: no limitations HEENT normocephalic Eyes General Eye: normal appearance of both eyes Neck full ROM General: normal visual inspection Chest Chest: symmetrical chest wall rise Resp normal respiratory effort and normal air movement Effort and Inspection: symmetric chest movement Auscultation: clear to auscultation bilaterally Cardio regular rate and regular rhythm GI normal to inspection, nondistended, normoactive bowel sounds Back/Spine normal ROM Extremity full ROM and no calf tenderness General Extremity: normal exam except as noted Skin no rashes or lesions noted Skin Narrative: Skin above dressing is red and open in some areas. Possible yeast. Neuro CN's II-XII intact bilaterally Psych mental status grossly normal Assessment & Plan (1) Delivery by section: (2) complicated by Suboxone maintenance, antepartum: (3) History of drug use: (4) History of depression: (5) Obesity affecting : (6) Tobacco abuse: (7) Skin yeast infection: (8) Abdominal pannus: PLAN: Plan POD 4 Primary C/S Pain control- continue Subutex, no narcotics support Will be hotel status- baby to stay full 5 days Nystatin powder to abdomen in skin folds Keep skin/ pannus dry and open to air D/C home/hotel status- Follow up in office Friday for skin check
[2022-07-23] MEDS: Enoxaparin 40 MG/0.4 ML Syringe SC ×2 (09:56→22:54)
[2022-07-23] MEDS: buprenorphine HCL 8 MG TAB.SUBL 16 MG SL (09:57)
[2022-07-23] MEDS: Senna/Docusate Sodium 1 Tablet PO (09:57)
--- NOTE | 2022-07-23 12:18 | NURSING ---
interdry placed in skin fold where incision is
[2022-07-23] MEDS: Nystatin Powder 15gm Bottle 1 APPLIC TOPICAL ×2 (14:42→22:54)
[2022-07-23 14:52] VITALS: BP 137/50; PULSE 86; RESP 16; TEMP 36.5; O2SAT 100
--- NOTE | 2022-07-23 17:00 | PCM.DC.SUM ---
Providers Date of Admission: 07/18/22 Primary Care Physician: No Primary Care Phys Reason For Visit: INDUCTION/C SECTION DELIVERY Diagnosis Discharge Diagnosis (1) Delivery by section: Status: Acute (2) complicated by Suboxone maintenance, antepartum: Status: Acute Code(s): O99.320 - Drug use complicating , unspecified trimester; F11.20 - Opioid dependence, uncomplicated (3) History of drug use: Status: Acute Code(s): F19.91 - Other psychoactive substance use, unspecified, in remission (4) History of depression: Status: Acute Code(s): Z86.59 - Personal history of other mental and behavioral disorders (5) Obesity affecting : Status: Acute Code(s): O99.210 - Obesity complicating , unspecified trimester (6) Tobacco abuse: Status: Acute Code(s): Z72.0 - Tobacco use (7) Skin yeast infection: Status: Acute Code(s): B37.2 - Candidiasis of skin and nail (8) Abdominal pannus: Status: Acute Code(s): E65 - Localized adiposity (9) Edema: Status: Acute Code(s): R60.9 - Edema, unspecified Plan POD 4 Primary C/S Pain control- continue Subutex, no narcotics support Will be hotel status- baby to stay full 5 days Nystatin powder to abdomen in skin folds Keep skin/ pannus dry and open to air Lasix 20 mg PO x 1 dose D/C home/hotel status- Follow up in office Friday for skin check Dr. Luciano involved with plan of care and discharge instructions Medications at Discharge Home Medications buprenorphine HCl 8 mg sublingual tablet 24 mg SL DAILY hx. opioid abuse 06/20/19 103-folic acid 400 mcg-omeg3 32.5 mg-dha-fish oil chew tablet 2 ea PO DAILY vitamin 06/20/19 acetaminophen 500 mg tablet 1,000 mg PO Q8H PRN PRN Pain Score 1-3/10 06/23/19 ibuprofen 600 mg tablet 600 mg PO Q6H #0 tabs 07/23/22 nystatin 100,000 unit/gram topical powder (Nyamyc) 1 applic topical TID #30 grams 07/23/22 sennosides 8.6 mg-docusate sodium 50 mg tablet (Stool Softener-Stimulant Laxative) 1 - 2 tab PO DAILY #0 tabs 07/23/22 Hospital Course Operations section Summary of Care Provided Hospital Course: Patient had primary section. Hospital course was uneventful. Physical Exam Narrative Dressing is dry and intact Const alert and no apparent distress General Appearance: cooperative and comfortable Exam Limitations: no limitations HEENT normocephalic Eyes General Eye: normal appearance of both eyes Neck full ROM General: normal visual inspection Chest Chest: symmetrical chest wall rise Resp normal respiratory effort and normal air movement Effort and Inspection: symmetric chest movement Auscultation: clear to auscultation bilaterally Cardio regular rate and regular rhythm GI normal to inspection, nondistended, normoactive bowel sounds Back/Spine normal ROM Extremity full ROM and no calf tenderness General Extremity: normal exam except as noted Skin Skin Narrative: Yeast noted to pannus, skin folds Neuro CN's II-XII intact bilaterally Psych mental status grossly normal Weight / BMI Weight Weight: 288 lb 8 oz Body Mass Index (BMI) 51.0 ABG / Lab / Microbiology Data Result Diagrams: 07/21/22 04:50 D/C Instructions Discharge Diet: No restrictions Discharge Activity: May Shower Weight Bearing Status: Weight bearing as tolerated Call your doctor if you observe: Fever of 101 or Higher, Inability to urinate, Inability to have a bowel movement, Using more than 1 pad per hour, Shortness of breath, Chest pain, Calf discomfort and Uncontrolled pain Change Dressing in: leave in place till F/U When: Friday in office for incision/skin check Meaningful Use Info Meaningful Use Diagnoses (Choose all that apply): None applicable Discharge Plan Admission Admit Date/Time: 07/18/22 08:15 Primary Reason for Your Visit: Labor and Delivery Attending Provider: Alexandra Pennington Primary Care Provider: Care Physician,No Primary Discharge Orders/Prescriptions Prescriptions: New sennosides-docusate sodium [Stool Softener-Stimulant Laxat] 8.6-50 mg Tablet 1 - 2 tab PO DAILY Qty: 0 0RF nystatin [Nyamyc] 100,000 unit/gram Powder 1 applic topical TID Qty: 30 0RF Protocol: *Topical Application Instructions APPLICATION INSTRUCTIONS: apply liberally to abdominal skin fold TID ibuprofen 600 mg Tablet 600 mg PO Q6H Qty: 0 0RF Continued buprenorphine HCl 8 MG tablet, sublingual 24 mg SL DAILY Label Comments: pt. reports that she takes when she wakes in the morning and then the second between [id number] PNV 859-[id number]-gmaaw-3-fish oil 1 EACH tablet,chewable 2 ea PO DAILY acetaminophen 500 MG tablet 1,000 mg PO Q8H PRN PRN (Reason: Pain Score 1-3/10) 0RF Discontinued clindamycin HCl 150 mg capsule 150 mg PO TID Qty: 21 0RF ondansetron HCl 4 mg tablet 4 mg PO Q8H PRN (Reason: Nausea) Label Comments: TAKE 1 TABLET BY MOUTH EVERY 8 HOURS NEEDED Referrals / Follow Up: Care Physician,No Primary [Primary Care Provider] - Disposition Disposition (needs filled in before D/C Order can be placed): Home, Self Care
[2022-07-23] MEDS: Furosemide 20 MG Tablet PO (17:45)
[2022-07-23 21:23] VITALS: BP 126/73; PULSE 91; RESP 18; TEMP 36.5
[2022-07-23] MEDS: buprenorphine HCL 8 MG TAB.SUBL SL (22:55)
--- NOTE | 2022-08-02 21:29 | CASEMGMT ---
Social Work Labor and Delivery MOB was provided with resources for home going prior to 's discharge from the hospital. Refer to 's delivery admission, linked to this record for details of social work interventions. No other services requested or indicated. -ALMA English, [employer] FIN[employer]ER
== END 2022-07-23 23:05 | disposition home or self-care (01) | DRG 539 ==
PROVIDERS: Advanced Practice Midwife; Admitting Provider Obstetrics & Gynecology; Referring Provider Obstetrics & Gynecology; Visit Provider Obstetrics & Gynecology
DX: O36.63X0 Maternal care for excessive fetal growth, third trimester, not applicable or unspecified (principal); O99.324 Drug use complicating childbirth; F11.21 Opioid dependence, in remission; F17.210 Nicotine dependence, cigarettes, uncomplicated; B37.2 Candidiasis of skin and nail; E66.9 Obesity, unspecified; F19.11 Other psychoactive substance abuse, in remission; O32.4XX0 Maternal care for high head at term, not applicable or unspecified; O40.3XX0 Polyhydramnios, third trimester, not applicable or unspecified; O99.824 Streptococcus B carrier state complicating childbirth; Z3A.39 39 weeks gestation of pregnancy; O99.334 Smoking (tobacco) complicating childbirth; O99.214 Obesity complicating childbirth; Z37.0 Single live birth; Z79.899 Other long term (current) drug therapy
CPT/HCPCS: 59025; 59050; 80307; 85025; 85027; 86850; 86900; 86901; 88302; 99221; 99252; 99406; J7040; J7120; 90686; A4216; G0378; G0463; J2405

== ENCOUNTER → 2022-08-01 | Outpatient (CLI) | payer MEDICAID, SELFPAY ==
--- NOTE | 2022-08-01 14:13 | VDLE_ITS ---
Reason For Study: R/O DVT Procedure LEFT This is a venous duplex using B-mode, color GSV is normal. flow and spectral Doppler. CFV is compressible, spontaneous, phasic, Exam performed in department. competent, and demonstrates normal The study was technically difficult. augmentation. A preliminary report was called and/or faxed FV is compressible, spontaneous, phasic, to [place]. competent and demonstrates normal augmentation. POP V is compressible, spontaneous, phasic, competent and demonstrates normal augmentation. T/P Trunk is compressible. PTV is compressible. LT PerV is compressible. VL/Venous Duplex US, Unilateral Interpretation Summary Deep veins of the left lower extremity are patent and compressible segmentally. There is no evidence of left lower extremity deep vein thrombosis. The left great saphenous vein cierra ears patent and compressible segmentally. Ordering Physician: Alexandra Pennington Performed By: Nehal Landry RVT
== END | disposition home or self-care (01) ==
LOC: CVS 14:11
PROVIDERS: Referring Provider Obstetrics & Gynecology; Visit Provider Obstetrics & Gynecology
DX: M79.605 Pain in left leg (principal); M79.89 Other specified soft tissue disorders
CPT/HCPCS: 93971

== ENCOUNTER 2022-08-26 21:48 | Emergency (ER) | payer MEDICAID, SELFPAY ==
[2022-08-26 21:49] VITALS: BP 131/73; PULSE 84; RESP 15; TEMP 37.2; O2SAT 100; BMI 46.8
[2022-08-26 22:01] VITALS: BP 131/73; PULSE 70; RESP 15; TEMP 36.6; O2SAT 97; BMI 46.7
--- NOTE | 2022-08-26 23:29 | EDS_ITS ---
HPI History of Present Illness Chief Complaint: Lower Extremity Injury Informant: patient Narrative Narrative: Patient presents with a sore area on her left posterior lateral calf. Patient had delivery just about 6 weeks ago now. Bleeding is completely stopped from that and she is having no symptoms related to the surgery. She is not having chest pain shortness of breath. She had a lot of leg swelling in . The swelling is slowly going down still. It is still improving. She had ultrasounds 3 weeks ago that did not show any blood clot. She now states over the last few days she has 1 area on her left posterior lateral proximal calf that sore. Patient has never had blood clots but her mother has and her brother might have. I did look on her computer and review outpatient ultrasound that was done 01 August 2022. This was negative for DVT. [facility] Medical History Abdominal pannus History of depression History of drug abuse History of drug use History of depression Obesity affecting complicated by Suboxone maintenance, antepartum Skin yeast infection Tobacco abuse Home Medications buprenorphine HCl 8 mg sublingual tablet 24 mg SL DAILY hx. opioid abuse 06/20/19 [History Last Taken 07/18/22 24 mg] 103-folic acid 400 mcg-omeg3 32.5 mg-dha-fish oil chew tablet 2 ea PO DAILY vitamin 06/20/19 [History Last Taken 07/18/22] acetaminophen 500 mg tablet 1,000 mg PO Q8H PRN PRN Pain Score 1-3/10 06/23/19 [Rx Last Taken Unknown] ibuprofen 600 mg tablet 600 mg PO Q6H #0 tabs 07/23/22 [Rx Last Taken Unknown] nystatin 100,000 unit/gram topical powder ([facility]) 1 applic topical TID #30 grams 07/23/22 [Rx Last Taken Unknown] sennosides 8.6 mg-docusate sodium 50 mg tablet (Stool Softener-Stimulant Laxative) 1 - 2 tab PO DAILY #0 tabs 07/23/22 [Rx Last Taken Unknown] Allergy/AdvReac Type Severity Reaction Status Date / Time amoxicillin [Amoxicillin] Allergy Hives Verified 08/26/22 21:55 cefaclor [From Ceclor] Allergy Hives Verified 08/26/22 21:55 Penicillins Allergy Hives Verified 08/26/22 21:55 morphine AdvReac Hives Verified 08/26/22 21:55 narcotics AdvReac Other Uncoded 01/22/22 21:38 Surgical History Delivery by section History of laparoscopic cholecystectomy History of tonsillectomy and adenoidectomy Social History Smoking Status: Current some day smoker tobacco type: cigarettes substance use type: former substance user ROS ROS ED Constitutional Constitutional ED: Denies chills or fever(s) ENT ENT ED: Denies rhinorrhea Cardiovascular Cardiovascular: Denies chest pain, palpitations or racing heartbeat Respiratory/Chest Respiratory/Chest: Denies cough or dyspnea Gastrointestinal Gastrointestinal: Denies abdominal pain, constipation, diarrhea, nausea or vomiting Genitourinary Genitourinary ED: Reports other Details: No vaginal bleeding. ; Denies hematuria Musculoskeletal Musculoskeletal: Reports other Details: See history of present illness. ; Denies myalgias Integumentary Reports other Details: See history of present illness. Neurologic Neurologic: Denies paresthesias Hematologic/Lymphatic Hematologic/Lymphatic: Denies easy bleeding, easy bruising or lymphadenopathy Allergic/Immunologic Allergic/Immunologic ED: Denies urticaria EXAM Physical Exam Narrative Exam Narrative: Patient awake alert no acute distress lying in bed. HEENT shows moist mucous membranes. Eyes show no pallor Lungs are clear bilaterally. No pain with a deep breath. Her oxygen saturation is 97 to 100% on room air showing no hypoxia. Heart is regular without murmur gallop or rub Abdomen is nontender. She is healing well. Extremities are both large. I am not picking up an asymmetrical size though. I do not feel distended veins. She does have an area about 6 cm around on the proximal posterior lateral calf near the fibular head that has a little bit of redness and tenderness. But it does not look cellulitic. She has diffuse varicosities. This may be an area of superficial phlebitis. Const Vital Signs: 08/26/22 21:49 08/26/22 22:01 08/27/22 01:10 Temperature 98.9 F 97.9 F Temperature Source Temporal Temporal Pulse Rate 84 70 Respiratory Rate 15 15 Blood Pressure 131/73 H 131/73 H Blood Pressure Mean 92 92 Pulse Ox 100 97 98 Oxygen Delivery Method Room Air Room Air Room Air MDM MDM MDM Narrative Medical decision making narrative: Immediately upon seeing the patient, I came out to see if we can get an ultrasound tonight. But they are not able to do these past 11:00. Therefore, I went back and talk to the patient. We will do blood work here and treat based on that. Patient CBC shows minimal anemia. Platelets are normal. Electrolytes are normal. D-dimer was elevated. Patient is breast-feeding but overall Lovenox is generally considered safe. I think 1 dose has a greater benefit than risk. We discussed this with the patient. She will get a dose of Lovenox tonight and I will write for outpatient ultrasound for tomorrow. Lab Data Attestation: I reviewed the patient's lab results. Labs: Laboratory Results - last 24 hr 08/27/22 08/27/22 08/27/22 00:27 00:27 00:27 WBC 7.2 RBC 3.66 L Hgb 10.3 L Hct 32.7 L MCV 89.3 MCH 28.1 MCHC 31.5 L RDW Std Deviation 43.2 RDW Coeff of Carole 13.2 Plt Count 215 MPV 9.5 Immature Gran % (Auto) 0.300 Neut % (Auto) 54.5 Lymph % (Auto) 30.3 Weston % (Auto) 6.8 Eos % (Auto) 7.7 H Baso % (Auto) 0.4 Absolute Neuts (auto) 3.9 Absolute Lymphs (auto) 2.17 Nucleated RBC % 0 D-Dimer Quant (PE/DVT) 0.62 H* Sodium 142 Potassium 4.0 Chloride 106 Carbon Dioxide 29.0 Anion Gap 7 BUN 12 Creatinine 0.91 Estim Creat Clear Calc 72.06 Est GFR (MDRD) Af Amer 91 Est GFR (MDRD) Non-Af 76 BUN/Creatinine Ratio 13.2 Glucose 106 Calcium 8.9 Discharge Plan Triage Chief Complaint: Lower Extremity Injury ED Provider: Mukund Garcia Dx/Rx/DC Orders Clinical Impression: Left leg pain Instructions: ED Deep Vein Thrombosis (DVT), ED Thrombophlebitis, Superficial Prescriptions: No Action buprenorphine HCl 8 MG tablet, sublingual 24 mg SL DAILY Label Comments: pt. reports that she takes when she wakes in the morning and then the second between 8198-3005 PNV 138-[id number]-[id number]-3-fish oil 1 EACH tablet,chewable 2 ea PO DAILY acetaminophen 500 MG tablet 1,000 mg PO Q8H PRN PRN (Reason: Pain Score 1-3/10) 0RF sennosides-docusate sodium [Stool Softener-Stimulant Laxat] 8.6-50 mg Tablet 1 - 2 tab PO DAILY Qty: 0 0RF nystatin [Nyamyc] 100,000 unit/gram Powder 1 applic topical TID Qty: 30 0RF Protocol: *Topical Application Instructions APPLICATION INSTRUCTIONS: apply liberally to ab dominal skin fold TID ibuprofen 600 mg Tablet 600 mg PO Q6H Qty: 0 0RF Other Ambulatory Orders: Venous Duplex US - Luca Extrem (Stat) Facility: [facility] Location: [facility] Ordered By: Dr. Mukund Garcia Primary Care Provider: Care Physician,No Primary Referrals: Care Physician,No Primary [Primary Care Provider] - Activity Restrictions/Additional Instructions: Follow-up with ultrasound in the morning. Disposition Disposition: Home, Self Care
[2022-08-27 00:38] LABS: Absolute Lymphocyte Count 2.17 X10^3/uL (0.83-4.51); Absolute Neutrophil Count 3.9 X10^3/uL (2.0-7.7); Basophil# 0.03 X10^3/uL; Basophil% 0.4 % (0-1); Eosinophil# 0.55 X10^3/uL; Eosinophils% 7.7 % (0-5); Hematocrit 32.7 % (37-47); Hemoglobin 10.3 g/dL (12.0-15.0); Lymphocyte # 2.17 X10^3/ul (0.83-4.51); Lymphocyte % 30.3 % (19-41); Mean Corp Hgb Conc 31.5 g/dL (32-36); Mean Corpuscular Hgb 28.1 pg (27.0-32.0); Mean Corpuscular Volume 89.3 fL (81-99); Mean Platelet Vol. 9.5 fl (6.2-12.0); Monocyte# 0.49 X10^3/uL; Monocyte% 6.8 % (0-10); NRBC Flagged by Analyzer 0 % (0-5); Neutrophil # 3.91 X10^3/uL (2.7-7.7); Neutrophil % 54.5 % (47-70); Platelet Count 215 K/mm3 (150-450); RBC Distribution Width CV 13.2 % (11.6-14.6); RBC Distribution Width SD 43.2 fl (35.1-43.9); Red Blood Count 3.66 M/mm3 (4.2-5.4); White Blood Count 7.2 K/mm3 (4.4-11.0)
[2022-08-27 00:56] LABS: D-Dimer Quantitative (DVT/PE) 0.62 FEU/ug/m (0.27-0.49)
[2022-08-27 01:10] VITALS: O2SAT 98; BMI 46.7
[2022-08-27 01:28] LABS: Anion Gap 7 (5-15); BUN 12 mg/dL (7-18); BUN/Creat Ratio 13.2 RATIO (10-20); Calcium,Total 8.9 mg/dL (8.5-10.1); Chloride 106 mmol/L (98-107); Creatinine, Serum 0.91 mg/dL (0.55-1.02); EST Glomerular Filtration Rate 76 mL/min (>60); Est Glom Filt Rate - Afr Amer 91 mL/min (>60); Estimated Creatinine Clearance 72.06 ml/min; Glucose 106 mg/dL (74-106); Sodium Level 142 mmol/L (136-145)
[2022-08-27] MEDS: Enoxaparin 120 MG/0.8 ML Syringe SC (02:00)
== END 2022-08-27 02:12 | disposition home or self-care (01) ==
PROVIDERS: Emergency Provider Emergency Medicine; Visit Provider Emergency Medicine
DX: M79.605 Pain in left leg (principal); D64.9 Anemia, unspecified; F17.210 Nicotine dependence, cigarettes, uncomplicated
CPT/HCPCS: 80048; 85025; 85379; 96372; 99282; A4216

== ENCOUNTER → 2022-08-27 | Outpatient (CLI) | payer MEDICAID, SELFPAY ==
--- NOTE | 2022-08-27 13:09 | VDLE_ITS ---
Reason For Study: pain RIGHT LEFT GSV is normal. GSV is normal. CFV is compressible, spontaneous, phasic, CFV is compressible, spontaneous, phasic, competent and demonstrates normal competent, and demonstrates normal augmentation. augmentation. FV is compressible, spontaneous, phasic, FV is compressible, spontaneous, phasic, competent and demonstrates normal competent and demonstrates normal augmentation. augmentation. POP V is compressible, spontaneous, phasic, POP V is compressible, spontaneous, phasic, competent and demonstrates normal competent and demonstrates normal augmentation. augmentation. T/P Trunk is compressible. T/P Trunk is compressible. PTV is compressible. PTV is compressible. RT PerV is compressible. LT PerV is compressible. Procedure Varicose veins on the lateral portion of the This is a venous duplex using B-mode, color leg at the knee are dilated and flow and spectral Doppler. noncompressible. Exam performed in department. The exam was diagnostic. Study done as an outpatient ordered by our ED physician. Pt does not have a PCP. Pt refused to go to ED for instructions. Results called to Dr. Gorge DEY. VL/Venous Duplex US - Luca Extrem Interpretation Summary No evidence for acute deep venous thrombosis bilateral lower extremities with p atent and compressible bilateral great saphenous veins. Superficial thrombophlebitis vari cose veins lateral portion of the left leg at the knee. Ordering Physician: Mukund Garcia Performed By: Kalen Mendoza RVT
== END | disposition home or self-care (01) ==
LOC: CVS 13:08
PROVIDERS: Referring Provider Emergency Medicine; Visit Provider Emergency Medicine
DX: M79.661 Pain in right lower leg (principal); M79.662 Pain in left lower leg
CPT/HCPCS: 93970

== ENCOUNTER 2024-02-24 12:11 | Emergency (ER) | payer MEDICAID, SELFPAY ==
[2024-02-24 12:12] VITALS: BP 142/84; PULSE 81; RESP 14; TEMP 35.7; O2SAT 98; BMI 50.8
--- NOTE | 2024-02-24 12:19 | EX.ED.DYSGE1 ---
HPI History of Present Illness Chief Complaint: Lower Extremity Injury [facility] Medical History Abdominal pannus History of depression History of drug abuse History of drug use History of depression Obesity affecting complicated by Suboxone maintenance, antepartum Skin yeast infection Tobacco abuse Home Medications ?Medication ?Instructions ?Recorded ?Last Taken ?Type buprenorphine HCl 8 mg sublingual 24 mg sublingual DAILY hx. opioid 06/20/19 07/18/22 History tablet abuse 24 mg 103-folic acid 400 2 ea PO DAILY vitamin 06/20/19 07/18/22 History mcg-omeg3 32.5 mg-dha-fish oil chew tablet acetaminophen 500 mg tablet 1,000 mg (2 x 500 mg) PO Q8H PRN 06/23/19 Unknown Rx PRN Pain Score 1-3/10 ibuprofen 600 mg tablet 600 mg PO Q6H #0 tabs 07/23/22 Unknown Rx nystatin 100,000 unit/gram topical 1 applic topical TID #30 grams 07/23/22 Unknown Rx powder ([facility]) sennosides 8.6 mg-docusate sodium 1 - 2 tab PO DAILY #0 tabs 07/23/22 Unknown Rx 50 mg tablet (Stool Softener-Stimulant Laxative) sulfamethoxazole 800 1 tab PO BID #14 tabs 02/24/24 Unknown Rx mg-trimethoprim 160 mg tablet (Bactrim DS) Allergy/AdvReac Type Severity Reaction Status Date / Time Opioids - Morphine Analogues Allergy Severe other Verified 02/24/24 12:12 amoxicillin (Amoxicillin) Allergy Hives Verified 02/24/24 12:12 cefaclor (From Ceclor) Allergy Hives Verified 02/24/24 12:12 Penicillins Allergy Hives Verified 02/24/24 12:12 morphine AdvReac Hives Verified 02/24/24 12:12 Surgical History Delivery by section History of laparoscopic cholecystectomy History of tonsillectomy and adenoidectomy Social History Smoking Status: Current every day smoker tobacco type: cigarettes substance use type: former substance user EXAM Physical Exam Const Vital Signs: 02/24/24 12:12 Temperature 96.3 F L Temperature Source Temporal Pulse Rate 81 Respiratory Rate 14 Blood Pressure 142/84 H Blood Pressure Mean 103 Pulse Ox 98 Oxygen Delivery Method Room Air [facility] [place] Narrative Medical decision making narrative: HISTORY OF PRESENT ILLNESS: 33-year-old female history of superficial vein thrombosis presents with concern for DVT. Notes history of SVT. Notes swelling for the last 4 days. No falls or trauma. No joint pain or swelling. No chest pain or shortness of breath endorsed at this time. Notes pain and swelling to the left upper lower thigh. The patient denies recent surgery in the last 4 weeks or immobilization in the last 3 days, denies previous diagnosis of DVT or PE, hemoptysis, unilateral leg swelling or malignancy with treatment the last 6 months or palliative. No estrogen use noted. REVIEW OF SYSTEMS: Pertinent positives: Leg pain Pertinent negatives: Chest pain, shortness of breath, mopped assist PHYSICAL EXAM: Nursing triage notes reviewed, Vital signs reviewed Constitutional: please see mdm HENT: MMM Extremities: Trace edema bilaterally Neuro: No f intact sensation L1-S1 dermatomal distributions. Intact 5/5 strength in hip flexion (T12-L3). Knee extension (L2-L4). Ankle dorsiflexion (L4-L5). Ankle plantar flexion (S1). Great toe extension (L5). 2+ patellar and Achilles DTRs. Skin: N noted confluent erythematous area approximately centimeter 4 x 4 area of redness along the left lateral lower thigh consistent with likely cellulitis MEDICAL DECISION MAKING: Chief Complaint: Leg pain, swelling External records reviewed: Medications reviewed: No blood thinners noted. Imaging reviewed: Duplex ultrasound from 2022 shows no evidence of DVT Factors affecting care: Superficial vein thrombosis MDM Narrative: Patient was initially hemodynamically stable, afebrile and nontoxic-appearing. Exam with concern for superficial thrombophlebitis versus cellulitis Gave ibuprofen ordered ultrasound initially I considered the following differential diagnosis: DVT, fracture, dislocation, septic arthritis, compartment syndrome, arterial occlusion, ALL IMAGES (IF OBTAINED) HAVE BEEN PERSONALLY REVIEWED AND INTERPRETED BY MYSELF. DVT ultrasound negative for acute DVT I suspect patient's presentation is likely secondary to superficial thrombophlebitis vs cellulitis. Will cover with antibiotics and give instructions to take anti-inflammatories The patient and/or family, caregivers express understanding. The patient and/or family, caregivers agrees with the plan. Shared decision making: I will have a discussion with the patient and or visitors regarding risk/benefits of further testing or admission. They will be made aware of of the risk/benefits inherent in this decision they will be given the opportunity to voice understanding. Total critical care time today provided was at least 0 minutes. This excludes separately billable procedures. Critical care time (if documented) is secondary to the patient having high probability of clinically significant/life threatening deterioration in the patient's condition which required my urgent intervention. Impression: 1. Leg pain 2. Cellulitis Dispo: Discharge home This note was generated with The Simple dictation software. It may contain incorrect words, spelling, and punctuation that were not noted in review of the chart prior to signing. Discharge Plan Triage Chief Complaint: Lower Extremity Injury ED Provider: Juarez Tanner Dx/Rx/DC Orders Clinical Impression: Varicose veins of both legs with edema, Cellulitis Instructions: Cellulitis Dc Prescriptions: New sulfamethoxazole-trimethoprim [Bactrim DS] 800-160 mg tablet 1 tab PO BID Qty: 14 0RF No Action buprenorphine HCl 8 MG tablet, sublingual 24 mg sublingual DAILY Patient Comments: pt. reports that she takes when she wakes in the morning and then the second between [id number] PNV 747-kanhr-jjxtz-3-fish oil 1 EACH tablet,chewable 2 ea PO DAILY acetaminophen 500 MG tablet 1,000 mg PO Q8H PRN PRN (Reason: Pain Score 1-3/10) 0RF sennosides-docusate sodium [Stool Softener-Stimulant Laxat] 8.6-50 mg Tablet 1 - 2 tab PO DAILY Qty: 0 0RF nystatin [Nyamyc] 100,000 unit/gram Powder 1 applic topical TID Qty: 30 0RF Protocol: *Topical Application Instructions APPLICATION INSTRUCTIONS: apply liberally to abdominal skin fold TID ibuprofen 600 mg Tablet 600 mg PO Q6H Qty: 0 0RF Primary Care Provider: Qi Talavera Referrals: Qi Talavera MD [Primary Care Provider] - Activity Restrictions/Additional Instructions: Thank you for trusting us with your care today! Please take Tylenol (2 pills, 650 mg), ibuprofen (2 pills, 400 mg) every 6 hours as needed for pain and fever control. Please take antibiotics as prescribed until course complete Please return to the emergency department if your symptoms change or worsen. Specifically develop shortness of breath, severe pain, discoloration of your lower extremity Please follow with your primary care physician for further outpatient evaluation and management. Print Language: Tamazight Disposition Disposition: Home, Self Care
--- NOTE | 2024-02-24 12:22 | VDLE_ITS ---
Reason For Study: R/O LLE DVT RIGHT LEFT FV is compressible, spontaneous, phasic, GSV appears compressible throughout. competent and demonstrates normal Multiple ASV varicosities noted throughout augmentation. LLE. All appear compressible. Procedure SFJ is INCOMPETENT and measures 0.75 cm. This is a venous duplex using B-mode, color CFV is compressible, phasic, and INCOMPETENT flow and spectral Doppler. for greater than 1.0 second. Exam performed portable in ED. FV is compressible, phasic, and INCOMPETENT The exam was diagnostic. for greater than 1.0 second. A preliminary report was called and/or faxed POP V is compressible, phasic, and to Dr. Tanner. INCOMPETENT for greater than 1.0 second. T/P Trunk is compressible. PTV is compressible. LT PerV is compressible. VL/Venous Duplex US, Unilateral Interpretation Summary Deep veins of the left lower extremity are patent and compressible segmentally. There is no evidence of left lower extremity deep vein thrombosis. The left great saphenous vein cierra ears patent and compressible segmentally. Positive for reflux in the left saphenofemoral junction, common femoral vein, f emoral vein, popliteal vein Ordering Physician: Juarez Tanner Referring Physician: Qi Talavera M.D. Performed By: Db Hanna RVT
[2024-02-24] MEDS: Ibuprofen 200 MG Tablet 400 MG PO (12:33)
[2024-02-24] MEDS: Smz/Tmp Ds Tablet 1 TABLET PO (13:39)
[2024-02-24 13:41] VITALS: BP 144/86; PULSE 84; RESP 16; TEMP 36.7; O2SAT 97
== END 2024-02-24 13:49 | disposition home or self-care (01) ==
PROVIDERS: Emergency Provider Emergency Medicine; PCP Internal Medicine; Visit Provider Emergency Medicine
DX: I83.893 Varicose veins of bilateral lower extremities with other complications (principal); L03.115 Cellulitis of right lower limb; L03.116 Cellulitis of left lower limb; F17.210 Nicotine dependence, cigarettes, uncomplicated
CPT/HCPCS: 93971; 99282

== ENCOUNTER → 2024-03-16 | Outpatient (CLI) | payer MEDICAID, SELFPAY ==
--- NOTE | 2024-03-16 11:19 | VDLE_ITS ---
Reason For Study: Left leg pain RIGHT LEFT CFV is compressible, spontaneous, phasic, GSV is normal. competent and demonstrates normal CFV is compressible, spontaneous, phasic, augmentation. competent, and demonstrates normal Procedure augmentation. This is a venous duplex using B-mode, color FV is compressible, phasic, and INCOMPETENT flow and spectral Doppler. for greater than 1.0 second. Exam performed in department. POP V is compressible, phasic, and A preliminary report was called and/or faxed INCOMPETENT for greater than 1.0 second. to Laxmi. T/P Trunk is compressible. PTV is compressible. LT PerV is compressible. Thrombus filled varicose veins noted in the left mid thigh to knee. VL/Venous Duplex US, Unilateral Interpretation Summary Acute superficial vein thrombosis noted in thigh varicosities. Does not extend into saphenous vein or approach deep system. Deep veins of the left lower extremity are patent and compressible segmentally. There is no evidence of left lower extremity deep vein thrombosis. The left great saphenous vein cierra ears patent and compressible segmentally. Ordering Physician: Qi Talavera Referring Physician: Qi Talavera Performed By: Nehal Landry RVT
== END | disposition home or self-care (01) ==
LOC: CVS 11:18
PROVIDERS: PCP Internal Medicine; Referring Provider Internal Medicine; Visit Provider Internal Medicine
DX: I83.893 Varicose veins of bilateral lower extremities with other complications (principal); I82.890 Acute embolism and thrombosis of other specified veins; M79.605 Pain in left leg
CPT/HCPCS: 93971

== ENCOUNTER 2024-03-17 19:34 | Emergency (ER) | payer MEDICAID, SELFPAY ==
[2024-03-17 19:35] VITALS: BP 149/84; PULSE 81; RESP 18; TEMP 36.6; O2SAT 100; BMI 49.8
--- NOTE | 2024-03-17 20:52 | ED.RN ---
pt would like to leave without being seen. states she has vascular appt in am. feels less anxious and that her breathing and pain are improving.
== END 2024-03-17 20:52 | disposition left against medical advice (07) ==
LOC: ED 21:05
PROVIDERS: PCP Internal Medicine
DX: Z53.21 Procedure and treatment not carried out due to patient leaving prior to being seen by health care provider (principal)

== ENCOUNTER → 2024-03-24 | Outpatient (CLI) | payer MEDICAID, SELFPAY ==
--- NOTE | 2024-03-24 09:58 | VDLE_ITS ---
Reason For Study: LLE PAIN Procedure LEFT This is a venous duplex using B-mode, color GSV is normal. flow and spectral Doppler. CFV is compressible, spontaneous, phasic, Exam performed in department. competent, and demonstrates normal A preliminary report was called and/or faxed augmentation. to Siri BAILEY @ 10:30 am. FV is compressible, spontaneous, phasic, competent and demonstrates normal augmentation. POP V is compressible, spontaneous, phasic, competent and demonstrates normal augmentation. T/P Trunk is compressible. PTV is compressible. LT PerV is compressible. THROMBUS filled varicosities on lateral LT thigh. VL/Venous Duplex US, Unilateral Interpretation Summary Thrombus filled varicosities on lateral LT thigh. Deep veins of the left lower extremity are patent and compressible segmentally. There is no evidence of left lower extremity deep vein thrombosis. The left great saphenous vein cierra ears patent and compressible segmentally. Ordering Physician: Siri Gutierrez Referring Physician: Qi Talavera Performed By: Danielle Farmer, RESHMA, RVT
== END | disposition home or self-care (01) ==
LOC: CVS 09:57
PROVIDERS: PCP Internal Medicine; Referring Provider Physician Assistant; Visit Provider Physician Assistant
DX: I82.812 Embolism and thrombosis of superficial veins of left lower extremity (principal)
CPT/HCPCS: 93971